=== PATIENT | female | born 1960 | race Caucasian/White ===

== ENCOUNTER → 2019-03-18 | Outpatient (CLI) | payer OTHER ==
--- NOTE | 2019-03-18 15:18 | Diagnostic Imaging Report ---
Exam: Right foot 3 views History: Osteoarthritis Comparison: None. Findings: No acute, displaced fracture or dislocation. Soft tissues are unremarkable. Joint spaces are well-maintained. Impression: No acute osseous abnormality. Signed by: Dr. Yamil Leo M.D. on 03/18/2019 3:15 PM
--- NOTE | 2019-03-18 15:21 | Diagnostic Imaging Report ---
Exam: Right wrist 3 views History: Osteoarthritis right wrist Comparison: None. Findings: No acute, displaced fracture or dislocation. There is a deformity of the proximal scaphoid with increased density of the scaphoid relative to the remainder of the carpal bones. Appropriate alignment between the distal radius, lunate, and capitate is maintained on the lateral radiograph 3 radius scaphoid joint space narrowing is noted. Soft tissues are unremarkable. Impression: Deformity of the scaphoid with increased density likely reflects chronic osteonecrosis with secondary radioscaphoid degenerative osteoarthrosis. Signed by: Dr. Yamil Leo M.D. on 03/18/2019 3:18 PM
== END ==
LOC: RAD 14:30
PROVIDERS: ATTEND Internal Medicine
DX: M19.031 Primary osteoarthritis, right wrist (principal); M19.071 Primary osteoarthritis, right ankle and foot

== ENCOUNTER → 2019-04-02 | Outpatient (CLI) | payer OTHER ==
--- NOTE | 2019-04-02 14:01 | Diagnostic Imaging Report ---
MRI of the right forefoot without contrast. History: Foot pain. Fall. Pain near the fourth digit. Fracture. Swelling. Technique: Multiplanar multisequence MRI of the foot without contrast Comparison: Radiograph 03/18/2019 Findings: There is no acute fracture, subluxation or avascular necrosis. Mild scattered degenerative changes are seen. No osseous erosion. No ligamentous or tendon tear. The visualized neurovascular bundles are intact. The visualized muscles are normal in size, signal intensity and morphology. Impression: No acute fracture, subluxation or avascular necrosis. Specifically no fourth toe fracture is seen. There are scattered degenerative changes. No osseous erosion. Mild edema between the distal third and fourth metatarsals could be due to intermetatarsal bursitis. Signed by: Dr. Josué Rosa M.D. on 04/02/2019 1:58 PM
== END ==
LOC: MRI 10:03
PROVIDERS: ATTEND Internal Medicine
DX: Z12.31 Encounter for screening mammogram for malignant neoplasm of breast (principal); M79.671 Pain in right foot; I73.9 Peripheral vascular disease, unspecified
CPT/HCPCS: 77067

== ENCOUNTER 2019-04-23 23:02 | Emergency (ER) | payer OTHER ==
--- OUTSIDE RECORDS SUMMARY | 2019-04-23 23:05 | XMS REPORT | Clinical Summary ---
Author Author [facility] Address Unknown Phone Unavailable Care Team Providers Care Hemodialysis Charge Nurse Name Role Phone James Jackson PCP Allergies No Known Allergies Medications Not on file Active Problems Not on file Social History Date Tobacco Use Types Packs/Day Years Used Never Assessed Sex Assigned at Date Recorded Not on file Industry Job Start Date Occupation Not on file Not on file Not on file Travel End Travel History Travel Start No recent travel history available. Last Filed Vital Signs Not on file Plan of Treatment Not on file Results Not on fileafter 04/22/2018 Insurance Payer Benefit Subscriber ID Type Phone Address Plan / Group [employer] xxxxxxxxxx [employer] E [employer]CHANGE MULTIPLAN [employer] M[employer] xxxxxxxxxx PPO PPO
--- OUTSIDE RECORDS SUMMARY | 2019-04-23 23:05 | XMS REPORT | Clinical Summary ---
Author Author [facility] Address Unknown Phone Unavailable Care Team Providers Care Sap Project Manager Name Role Phone Karina Link MD PCP Allergies No Known Allergies Medications End Date Status Medication Sig Dispensed Refills Start Date Active lubiprostone (AMITIZA) 8 Take 8 mcg by 0 MCG capsule mouth daily with breakfast. Active aspirin (ECOTRIN) 81 MG Take 81 mg by 0 enteric coated tablet mouth daily. Active atorvastatin (LIPITOR) 80 Take 80 mg by 0 MG tablet mouth daily. Active isosorbide mononitrate Take 60 mg by 0 (IMDUR) 60 MG 24 hr mouth daily. tablet Active lisinopril Take 20 mg by 0 (PRINIVIL,ZESTRIL) 20 mg mouth daily. tablet Active nitroglycerin (NITROSTAT) Place 0.4 mg 0 0.4 MG SL tablet under the tongue every 5 (five) minutes as needed for chest pain. Active dicyclomine (BENTYL) 20 Take 20 mg by 0 mg tablet mouth daily. 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 angina pectoris 03/30/2017 Hyperlipidemia LDL goal <70 03/30/2017 Peripheral vascular disease with claudication 03/30/2017 Asymptomatic menopausal state 03/30/2017 Irritable bowel syndrome with both constipation and diarrhea 03/30/2017 Personal history of nicotine dependence 03/30/2017 Abnormal result of cardiovascular function study 03/30/2017 Chest pain 03/30/2017 Family History Medical History Relation Name Comments Heart failure Father Heart failure Mother Relation Name Status Comments Father Mother Social History Date Tobacco Use Types Packs/Day Years Used Current Every Day Smoker Alcohol Use Drinks/Week oz/Week Comments No Sex Assigned at Date Recorded Not on file Industry Job Start Date Occupation Not on file Not on file Not on file Travel End Travel History Travel Start No recent travel history available. Last Filed Vital Signs Not on file Plan of Treatment Not on file Results Not on fileafter 04/22/2018 Advance Directives Patient has advance care planning documents on file. For more information, rosa sheldon contact: Hemant Mcclelland [address] [place] [address]
--- OUTSIDE RECORDS SUMMARY | 2019-04-23 23:06 | XMS REPORT ---
Author Author [facility] Address Unknown Phone Unavailable Care Team Providers Care Value Advisor Name Role Phone Kristy PATEL Unavailable Unavailable Payers Payer Name Policy Type Policy Number Effective Date Expiration Date Problems This patient has no known problems. Allergies, Adverse Reactions, Alerts Allergy Name Allergy Type Status Severity Reaction(s) Onset Date Inactive Date Treating Clinician Comments No Known Allergies DA Active U 2019-02-23 00:00:00 bupropion DA Active NE 2019-02-19 00:00:00 bupropion DA Active NE 2014-03-03 00:00:00 Medications This patient has no known medications. Results Test Description Test Time Test Comments Text Results Atomic Results Result Comments MRI FOOT RIGHT WO 2019-04-02 13:55:00 [facility] [address], [place] [address] Patient Name: LETY STRONG MR #: [id number] : 1960 Age/Sex: 58/F Req #: [id number] Adm Physician: Ordered by: CHICO PATEL MD Report #: [id number] Location: [facility] Room/Bed: Procedure: [id number] MRI/MRI FOOT RIGHT WO Exam Date: Exam Time: REPORT STATUS: Signed MRI of the right forefoot without contrast. History: Foot magnus n. Fall. Pain near the fourth digit. Fracture. Swelling. Technique: Multiplanar multisequence MRI of the foot without contrast Comparison: Radiograph 03/18/2019 Findings: There is no acute fracture, subluxation or avascular necrosis. Mild scattered degenerative changes are seen. No osseous erosion. No ligamentous or tendon tear. The visualized neurovascular bundles are intact. The visualized muscles are normal in size, signal intensity and morphology. Impression: No acute fracture, subluxation or avascular necrosis. Specifically no fourth toe fracture is seen. There are scattered degenerative changes. No osseous erosion. Mild edema between the distal third and fourth metatarsals could be due to intermetatarsal bursitis. Signed by: Dr. Chapito Rosa M.D. on 04/02/2019 1:58 PM Dictated By: CHAPITO ROSA MD, MD 4848 Transcribed By: MAGALIS on 04/02/19 0056 COPY TO: CHICO HUI MD [facility] DIGITAL SCR BILAT 2019-04-02 11:02:00 [place] [address] Patient Name: LETY STRONG MR #: [id number] : 1960 Age/Sex: 58/F Req #: [id number] Adm Physician: Ordered by: CHICO PATEL MD Report #: [id number] Location: MRI Room/Bed: Procedure: [id number] MG/MAMMOGRAPHY DIGITAL SCR BILAT Exam Date: 04/02/19 Exam Time: 1006 REPORT STATUS: Signed #[id number] - [id number] #BILATERAL DIGITAL SCREENING MAMMOGRAM WITH CAD: 04/02/2019 CLINICAL: Routine screening. Comparison is made to exam dated: 07/06/2016 mammogram - [facility]. The tissue of both breasts is predominantly fatty. Current study was also evaluated with a Computer Aided Detection (CAD) system. There are benign vascular calcifications in both breasts. No significant masses, calcifications, or other findings are seen in either breast. There has been no significant interval change. IMPRESSION: BENIGN There is no mammographic evidence of malignancy. A 1 year screening mammogram is recommended. The patient will be notified by letter of the results. JEANNIE HERR M.D., mc/nakia:04/10/2019 11:25:52 Rn Integrity: Gypsy ALEMAN(Yeny)(Kristy), [facility] letter sent: Normal Exam Mammogram BI-RADS: 2 Benign Dictated By: CARMEN HERR MD 1 125 Transcribed By: NAKIA on 04/10/19 9735 COPY TO: CHICO PATEL MD [facility] 2019-03-21 13:46:00 FAX: Meek Weeks III, MD [phone] [place]: St: REG FAX: Mike Dutta MD [phone] Name: LETY STRONG [facility] : 1960 Age/S: 58/F [address] Unit #: [id number] Loc: [place] [address] Phys: Meek Hurtado III, MD Acct: [id number] Dis Date: Status: REG [facility] PHONE #: [phone] Exam Date: 03/21/2019 1338 FAX #: [phone] Reason: LEFT LOWER LEG PAIN EXAMS: CPT CODE: [id number] [facility] LE ART [facility] [place] [address] Left lower extremity arterial Doppler ultrasound History: LEFT LOWER LEG PAIN Comparison: None at this time Location: R16 Left lower extremity arterial Doppler ultrasound, including grayscale real-time B-mode imaging with Duplex color flow and spectral analysis, was performed. There is a monophasic waveform pattern in the trifurcation arteries of the left lower extremity, consistent with small vessel disease. The remainder of the visualized arteries demonstrate a normal arterial waveform pattern. IMPRESSION: There is a monophasic waveform pattern in the trifurcation mariaa kenyon of the left lower extremity, consistent with small vessel disease. Otherwise unremarkable exam. at 1346 Reported and signed by: Jd Carroll MD CC: Meek Hurtado MD; Mike Lainez MD Technologist: SUSAN House Trnscrd Date/Time/By: 03/21/2019 (4896) : By: ChuckyPMT PAGE 1 Signed Report FAX: Meek Weeks III, MD [phone] [place]: St: REG FAX: Mike Dutta MD [phone] Name: LETY STRONG : 1960 Age/S: 58/F [address] Unit #: [id number] Loc: [place] [address] Phys: Meek Hurtado III, MD Acct: [id number] Dis Date: Status: REG [facility] PHONE #: [phone] Exam Date: 03/21/2019 1338 FAX #: [phone] Reason: LEFT LOWER LEG PAIN EXAMS: CPT CODE: [id number] [place] [address] <Continued> Orig Print D/T: S: 03/21/2019 (0625) PAGE 2 Signed Report ACT-ISTAT 2019-03-21 08:53:00 ACT-ISTAT (test code=ACTI) 362 SEC 74-125 COMPREHENSIVE METABOLIC [id number] 13:34:00* Test Item Value Reference Range Comments SODIUM (test code=NA) 141 mmol/L 137-145 POTASSIUM (test code=K) 3.8 mmol/L 3.4-5.0 CHLORIDE (test code=CL) 105 mmol/L 98-107 CARBON DIOXIDE (test code=CO2) 29 mmol/L 22-30 GLUCOSE (test code=GLU) 88 mg/dL 74-106 BLOOD UREA NITROGEN (test code=BUN) 8 mg/dL 7-17 GLOMERULAR FILTRATION RATE (test code=GFR) 110 >60 The estimated glomerular filtration rate is computed usingpatient race, age (>18), sex, and serum creatinine. If anyof the needed data elements are missing the Laboratory cannot compute an estimation of the glomerular filtration rate. CREATININE (test code=CREAT) 0.6 mg/dL 0.5-1.0 TOTAL PROTEIN (test code=PROT) 7.1 g/dL 6.3-8.2 ALBUMIN (test code=ALB) 4.1 g/dL 3.5-5.0 CALCIUM (test code=CA) 9.7 mg/dL 8.4-10.2 BILIRUBIN TOTAL (test code=BILT) 0.2 mg/dL 0.2-1.3 BILIRUBIN CONJUGATED (test code=BILCON) 0 mg/dL 0-0.3 ~~~~~~~~~~~~~~~~~~~~~~~~~~~~~~~~~~~~~~~~~~~~~~~~~~~~~~~~~~~~CONJUGATED BILIRUBIN IS THE REPLACEMENT ASSAY FOR DIRECTBILIRUBIN.~~~~~~~~~~~~~~~~~~~~~~~~~~~~~~~~~~~~~~~~~~~~~~~~~~~~~~~~~~~~ BILIRUBIN UNCONJUGATED (test code=BILUNC) 0 mg/dL 0-1.1 SGOT/AST (test code=AST) 31 U/L 15-46 SGPT/ALT (test code=ALT) < 13 U/L 13-69 ALKALINE PHOSPHATASE (test code=ALKP) 78 U/L 38-126 PROTHROMBIN [id number] 13:24:00* Test Item Value Reference Range Comments PROTHROMBIN TIME PATIENT (test code=PTP) 10.9 SECONDS 9.2-12.1 INTERNATIONAL NORMAL RATIO (test code=INR) 1.0 The INR is to be used only for monitoring ORAL ANTICOAGULANTTHERAPY. Indication INR Value1. Prophylaxis/treatment of: Venous Thrombosis, Pulmonary Embolism 2.0 - 3.02. Prevention of systemic embolism from: Tissue heart valves 2.0 - 3.0 Acute myocardial infarction (to present systemic embolism)* 2.0 - 3.0 Valvular heart disease 2.0 - 3.0 Atrial fibrillation 2.0 - 3.03. Mechanical prosthetic valves (high risk) 2.5 - 3.5 * If oral anticoagulant therapy is elected to preventrecurrent myocardial infarction, an INR of 2.5-3.5 isrecommended, consistent with Food and Drug Administrationrecommendations. IS PATIENT ON ANTICOAGULANTS ? YESLIST ANTICOAGULANT/ANTI PLT MEDICATION: Cl opidogrel (Anti-PLT)THROMBOPLASTIN TIME [id number] 13:24:00* Test Item Value Reference Range Comments THROMBOPLASTIN TIME PARTIAL (test code=PTT) 27.2 SECONDS 23.4-37.0 Therapeutic Range for Heparin EFFECTIVE 05/22/13 Heparin IU/mL aPTT Seconds0.3 64.30.7 88.8 IS PATIENT ON ANTICOAGULANTS ? YESLIST ANTICOAGULANT/ANTI PLT MEDICATION: Cl opidogrel (Anti-PLT)UA RFLX MICR CULT IF [id number] 13:24:00* Test Item Value Reference Range Comments UA COLOR (test code=COLU) Straw Yellow UA APPEARANCE (test code=APPU) Clear Clear UA GLUCOSE DIPSTICK (test code=DGLUU) Negative Negative UA BILIRUBIN DIPSTICK (test code=BILU) Negative Negative UA KETONE DIPSTICK (test code=KETU) Negative mg/dL Negative UA SPECIFIC GRAVITY (test code=SGU) 1.006 <1.030 UA BLOOD DIPSTICK (test code=GAY) Negative Negative UA PH DIPSTICK (test code=ROB) 7.0 5.0-8.0 UA PROTEIN DIPSTICK (test code=PROU) NEGATIVE mg/dL Negative UA UROBILINOGEN DIPSTICK (test code=URO) Negative mg/dL Negative UA NITRITE DIPSTICK (test code=BAKARI) Negative Negative UA LEUKOCYTE ESTERASE DIPSTICK (test code=LEUU) NEGATIVE Negative UA WBC (test code=WBCUR) 0-3 /HPF <4-5 <10 WBC/HPF=PYURIA ABSENT URINE CULTURE NOT INDICATED UA RBC (test code=RBCU) 0-3 /HPF <4-5 UA BACTERIA (test code=BACU) NONE SEEN /HPF None-Rare UA SQUAMOUS CELLS (test code=SQU) 0-5 (RARE) /HPF 0-5 (RARE) UA MUCUS (test code=MUCU) Rare /LPF <Rare less than 18 yrs old, neutropenic, or urological surgery? NOPrimary Indication f or Culture: OtherOther Indication: PREOPCBC W/AUTO [id number] 13:18:00* Test Item Value Reference Range Comments WHITE BLOOD CELL (test code=WBC) 9.4 x10 3/uL 5.0-12.0 RED BLOOD CELL (test code=RBC) 4.47 x10 6/uL 4.20-5.40 HEMOGLOBIN (test code=HGB) 12.7 g/dL 12.0-16.0 HEMATOCRIT (test code=HCT) 40.8 % 36.0-46.0 MEAN CELL VOLUME (test code=MCV) 91 fL 81-99 MEAN CELL HGB (test code=MCH) 28.4 pg 27-31 MEAN CELL HGB CONCENTRATION (test code=MCHC) 31.1 g/dL 33-37 RED CELL DISTRIBUTION WIDTH (test code=RDW) 13.8 % 11.5-15.5 PLATELET COUNT (test code=PLT) 304 x10 3/uL 130-400 MEAN PLATELET VOLUME (test code=MPV) 9.5 fL 9.4-16.4 NEUTROPHIL % (test code=NT%) 60.1 % 43-65 IMMATURE GRANULOCYTE % (test code=IG%) 0.5 % 0.0-2.0 LYMPHOCYTE % (test code=LY%) 26.6 % 20.5-45.5 MONOCYTE % (test code=MO%) 7.8 % 5.5-11.7 EOSINOPHIL % (test code=EO%) 4.6 % 0.9-2.9 BASOPHIL % (test code=BA%) 0.4 % 0.2-1.0 NUCLEATED RBC % (test code=NRBC%) 0.0 % 0-1.0 NEUTROPHIL # (test code=NT#) 5.62 x10 3/uL 2.2-4.8 IMMATURE GRANULOCYTE # (test code=IG#) 0.05 x10 3/uL 0-0.03 LYMPHOCYTE # (test code=LY#) 2.49 x10 3/uL 1.3-2.9 MONOCYTE # (test code=MO#) 0.73 x10 3/uL 0.3-0.8 EOSINOPHIL # (test code=EO#) 0.43 x10 3/uL 0.0-0.2 BASOPHIL # (test code=BA#) 0.04 x10 3/uL 0.0-0.1 - XR CHEST 2 [id number] 13:11:00 FAX: Meek Weeks III, MD [phone] [place]: St: PRE FAX: Mike Dutta MD [phone] Name: LETY STRONG [facility] [place] : 1960 Age/S: 58/F [address] Unit #: [id number] Loc: [place] [address] Phys: Meek Hurtado III, MD Acct: [id number] Dis Date: Status: PRE [facility] PHONE #: [phone] Exam Date: 03/20/2019 1256 FAX #: [phone] Reason: PREOP EXAMS: CPT CODE: [id number] XR CHEST 2 V 75225 C3 TIME OF STUDY: 03/20/2019 12:31 PM REASON FOR EXAM: PREOP COMPARISON: None FINDINGS: PA and lateral upright views of the chest were obtained. Lungs: Normal lung volume. No mass, or consolidation. Normal pulmonary vascularity. Pleura: No pleural effusion or pneumothorax. Heart and Mediastinum: Normal cardiomediastinal silhouette and calcific atherosclerosis. Bones: Normal regional skeletal structures. IMPRESSION: 1. No acute cardiopulmonary process. at 1311 Reported and signed by: Fer Couch MD CC: Meek Hurtado MD; Mike Lainez MD Technologist: DINO PIZANO Trnohrd Date/Time/By: 03/20/2019 (9427) : By: [email or web address] PAGE 1 Signed Report FAX: Meek Weeks III, MD [phone] [place]: St: PRE FAX: Mike Dutta MD [phone] -------- Name: LETY STRONG [facility] : 1959 Age/S: 58/F [address] Unit #: [id number] Loc: [place] [address] Phys: Meek Hurtado III, MD Acct: [id number] Dis Date: Status: PRE [facility] PHONE #: [phone] Exam Date: 03/20/2019 1255 FAX #: [phone] Reason: PREOP EXAMS: CPT CODE: [id number] XR CHEST 2 V 52334 <Continued> Orig Print D/T: S: 03/20/2019 (2573) PAGE 2 Signed Report WRIST COMPLETE [id number] 15:15:00 [facility] [address] [place] [address] Patient Name: LETY STRONG MR #: [id number] : 1960 Age/Sex: 58/F Req #: [id number] Adm Physician: Ordered by: CHICO PATEL MD Report #: [id number] Location: [facility] Room/Bed: Procedure: [id number] DX/ WRIST COMPLETE RIGHT Exam Date: Exam Time: REPORT STATUS: Signed Exam: Right w rist 3 views History: Osteoarthritis right wrist Comparison: None. Findings: No acute, displaced fracture or dislocation. There is a deform ity of the proximal scaphoid with increased density of the scaphoid relative t o the remainder of the carpal bones. Appropriate alignment between the distal radius, lunate, and capitate is maintained on the lateral radiograph 3 radius scaphoid joint space narrowing is noted. Soft tissues are unremarkable. 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 Signed by: Dr. Yusuf Lucia M.D. on 03/18/2019 3:18 PM Di ctated By: YUSUF LUCIA MD 5762 COPY TO: CHICO PATEL MD FOOT RIGHT [id number] 15:13:00 [place] [address] Patient Name: LETY STRONG MR #: [id number] : 1960 Age/Sex: 58/F Req #: [id number] Adm Physician: Ordered by: CHICO PATEL MD Report #: [id number] Location: [facility] Room/Bed: Procedure: [id number] DX/ FOOT RIGHT COMPLETE Exam Date: Exam Time: REPORT STATUS: Signed Exam: Right fo ot 3 views History: Osteoarthritis Comparison: None. Findings: N o acute, displaced fracture or dislocation. Soft tissues are unremarkable. Jenifer nt spaces are well-maintained. Impression: No acute osseous abnormality. Signed by: Dr. Yusuf Lucia M.D. on 03/18/2019 3:15 PM Dictated By: YUSUF LUCIA MD 2756 Transcribed By: MAGALIS on 03/18/19 3023 COPY TO: CHICO PATEL MD - CTA ABD AORTA IF LWEX [id number] 09:44:00 FAX: Meek Weeks III, MD [phone] [place]: St: ADM FAX: Mike Dutta MD [phone] Name: LETY STRONG : 1960 Age/S: 58/F [address] Unit: [id number] Loc: [address] [place] [address] Phys: Meek Hurtado III, MD Acct: [id number] Dis Date: Status: ADM IN PHONE #: [phone] Exam Date: 03/06/2019829 FAX #: [phone] Reason: aortoiliac disease; pad EXAMS: CPT CODE: [id number] [place] [address] EXAM: - CTA ABD AORTA IF LWEX RO HISTORY: Aortoiliac disease Location code:C3 COMPARISON: None available time of interpretation. TECHNIQUE: Axial CT images were obtained from the abdomen through the feet after intravenous contrast util izing CTA protocol. Coronal and sagittal MIP with 3-D volume rendered jose eduardo ges are provided. Automated exposure reduction (Auto mA/Smart mA) was util ized in compliance with ACR Image [employer]isely with DLP of 516.33 mGy-cm. COMPARISON: None FINDINGS: Statements: None. Thoracic: Included images of the lower chest demonstrate no abnorma lities. Hepatobiliary: The liver is normal without focal lesion. T he gallbladder is normal. No biliary dilation. Pancreas: Nor mal. Spleen: Normal. Adrenals: Normal. Genitourinary: The kidneys are normal. No evidence of hydronephrosis. Evaluation of the bladder is limited, but no obvious bladder abnormality i s present. Gastrointestinal: Surgical anastomosis about the sigmoi d colon is seen. No bowel obstruction is seen. The appendix is normal. Vascular: There are 2 right renal arteries with 50% stenosis at the origin of the more superior right renal artery. Single left renal a rtery is present and widely patent. Mild narrowing at the origin of the s uperior mesenteric artery of less than 20% is seen. The celiac PAGE 1 Signed Report (CONTINUED) FAX: Meek Terry III, MD [phone] [place]: St: ADM FAX: Mike Dutta MD [phone] Name: LETY STRONG [facility] [place] : 1960 Age/S: 58/F [address] Unit: [id number] Loc: [address] [place] [address] Phys: Meek Hurtado III, MD Acct: [id number] Dis Date: Status: ADM IN PHONE #: [phone] Exam Date: 03/06/2019829 FAX #: [phone] Reason: aortoiliac disease; pad EXAMS: CPT CODE: [id number] [place] [address] < Continued> artery and inferior mesenteric artery are widely patent. Extensive atherosclerotic plaque both calcified and noncalcified is seen throughout the abdominal aorta. There appears to be central luminal calcified plaque in the distal abdominal aorta just proximal to the aortic bifurcation. Shelflike plaque creating 50% short segment stenosis of the right common iliac artery just beyond its origin is seen. The external iliac and common femoral arteries are widely patent bilaterally. There is areas of plaque approaching 50% stenosis of the distal right superficial femoral artery. There is diffuse narrowing of the distal left superficial femoral artery with stenosis approaching 70% with three-vessel runoff to the left ankle. Lymphatics: No enlarged lymph nodes by CT size criteria. Bones/Soft Tissues: No acute osseous findings. Diastases of the lower abdominal wall containing fat and a small portion of small bowel is present without obstruction. Peritoneum/Other: No extraluminal air. No extraluminal fluid. Coronal and sagittal MIP with 3-D volume rendered images confirm these findings. IMPRESSION: 1. There is extensive atherosclerotic plaque both calcified and noncalcified throughout the abdominal aorta with areas of central luminal calcified plaque in the distal abdominal aorta which may represent chronic calcified dissection or could create flow limiting stenosis. Traditional angiogram may be warranted. 2. There are 2 right renal arteries with 50% narrowing of the origin of the more superior right renal artery at its origin. 3. Short segment 50% stenosis of the right common iliac artery just beyond its origin. 4. Scattered areas of narrowing of the distal superficial femoral arteries approaching 50% on the right and diffuse narrowing of the distal left superficial femoral artery approaching 70%. 5. Diastases lower abdominal wall as detailed above. PAGE 2 Signed Report (CONTINUED) FAX: Meek Weeks III, MD [phone] [place]: St: ADM FAX: Mike Dutta MD [phone] Name: [place] : 1960 Age/S: 58/F [address] Unit: [id number] c: [address] [place] [address] Phys: Meek Hurtado III, MD Acct: [id number] Dis Date: Status: ADM IN PHONE #: [phone] Exam Date: 03/06/2019829 FAX #: [phone] [place] son: aortoiliac disease; pad EXAMS: CPT CODE: [id number] [place] [address] <Continued> at 0944 Reported and signed by: Romain Estrada MD CC: Meek Hurtado MD; Mike Lainez MD Technologist: TORI LOPEZ Trnscrd Dt/Tm: 03/06/2019 (4929) [email or web address] Orig Print D/T: S: 03/06/2019 (0947 PAGE 3 Signed Report BASIC METABOLIC [id number] 04:32:00* Test Item Value Reference Range Comments SODIUM (test code=NA) 138 mmol/L 137-145 POTASSIUM (test code=K) 4.3 mmol/L 3.4-5.0 CHLORIDE (test code=CL) 106 mmol/L 98-107 CARBON DIOXIDE (test code=CO2) 25 mmol/L 22-30 GLUCOSE (test code=GLU) 105 mg/dL 74-106 BLOOD UREA NITROGEN (test code=BUN) 14 mg/dL 7-17 GLOMERULAR FILTRATION RATE (test code=GFR) >=60 max estimate >60 The estimated glomerular filtration rate is computed usingpatient race, age (>18), sex, and serum creatinine. If anyof the needed data elements are missing the Laboratory cannot compute an estimation of the glomerular filtration rate. CREATININE (test code=CREAT) 0.6 mg/dL 0.5-1.0 CALCIUM (test code=CA) 9.5 mg/dL 8.4-10.2 PROTHROMBIN [id number] 04:22:00* Test Item Value Reference Range Comments PROTHROMBIN TIME PATIENT (test code=PTP) 12.0 SECONDS 9.2-12.1 INTERNATIONAL NORMAL RATIO (test code=INR) 1.1 The INR is to be used only for monitoring ORAL ANTICOAGULANTTHERAPY. Indication INR Value1. Prophylaxis/treatment of: Venous Thrombosis, Pulmonary Embolism 2.0 - 3.02. Prevention of systemic embolism from: Tissue heart valves 2.0 - 3.0 Acute myocardial infarction (to present systemic embolism)* 2.0 - 3.0 Valvular heart disease 2.0 - 3.0 Atrial fibrillation 2.0 - 3.03. Mechanical prosthetic valves (high risk) 2.5 - 3.5 * If oral anticoagulant therapy is elected to preventrecurrent myocardial infarction, an INR of 2.5-3.5 isrecommended, consistent with Food and Drug Administrationrecommendations. THROMBOPLASTIN TIME [id number] 04:22:00* Test Item Value Reference Range Comments THROMBOPLASTIN TIME PARTIAL (test code=PTT) 29.2 SECONDS 23.4-37.0 Therapeutic Range for Heparin EFFECTIVE 05/22/13 Heparin IU/mL aPTT Seconds0.3 64.30.7 88.8 CBC W/AUTO [id number] 04:15:00* Test Item Value Reference Range Comments WHITE BLOOD CELL (test code=WBC) 8.4 x10 3/uL 5.0-12.0 RED BLOOD CELL (test code=RBC) 3.96 x10 6/uL 4.20-5.40 HEMOGLOBIN (test code=HGB) 11.4 g/dL 12.0-16.0 HEMATOCRIT (test code=HCT) 35.8 % 36.0-46.0 MEAN CELL VOLUME (test code=MCV) 90 fL 81-99 MEAN CELL HGB (test code=MCH) 28.8 pg 27-31 MEAN CELL HGB CONCENTRATION (test code=MCHC) 31.8 g/dL 33-37 RED CELL DISTRIBUTION WIDTH (test code=RDW) 13.1 % 11.5-15.5 PLATELET COUNT (test code=PLT) 229 x10 3/uL 130-400 MEAN PLATELET VOLUME (test code=MPV) 10.0 fL 9.4-16.4 NEUTROPHIL % (test code=NT%) 71.8 % 43-65 IMMATURE GRANULOCYTE % (test code=IG%) 0.5 % 0.0-2.0 LYMPHOCYTE % (test code=LY%) 15.4 % 20.5-45.5 MONOCYTE % (test code=MO%) 8.4 % 5.5-11.7 EOSINOPHIL % (test code=EO%) 3.1 % 0.9-2.9 BASOPHIL % (test code=BA%) 0.8 % 0.2-1.0 NUCLEATED RBC % (test code=NRBC%) 0.0 % 0-1.0 NEUTROPHIL # (test code=NT#) 6.01 x10 3/uL 2.2-4.8 IMMATURE GRANULOCYTE # (test code=IG#) 0.04 x10 3/uL 0-0.03 LYMPHOCYTE # (test code=LY#) 1.29 x10 3/uL 1.3-2.9 MONOCYTE # (test code=MO#) 0.70 x10 3/uL 0.3-0.8 EOSINOPHIL # (test code=EO#) 0.26 x10 3/uL 0.0-0.2 BASOPHIL # (test code=BA#) 0.07 x10 3/uL 0.0-0.1 [id number] 11:51:00* Test Item Value Reference Range Comments ACT-ISTAT (test code=ACTI) 180 SEC 74-125 [id number] 10:56:00* Test Item Value Reference Range Comments ACT-ISTAT (test code=ACTI) 208 SEC 74-125 [id number] 08:56:00* Test Item Value Reference Range Comments ACT-ISTAT (test code=ACTI) 335 SEC 74-125 PROTHROMBIN [id number] 07:20:00* Test Item Value Reference Range Comments PROTHROMBIN TIME PATIENT (test code=PTP) 10.7 SECONDS 9.2-12.1 INTERNATIONAL NORMAL RATIO (test code=INR) 1.0 The INR is to be used only for monitoring ORAL ANTICOAGULANTTHERAPY. Indication INR Value1. Prophylaxis/treatment of: Venous Thrombosis, Pulmonary Embolism 2.0 - 3.02. Prevention of systemic embolism from: Tissue heart valves 2.0 - 3.0 Acute myocardial infarction (to present systemic embolism)* 2.0 - 3.0 Valvular heart disease 2.0 - 3.0 Atrial fibrillation 2.0 - 3.03. Mechanical prosthetic valves (high risk) 2.5 - 3.5 * If oral anticoagulant therapy is elected to preventrecurrent myocardial infarction, an INR of 2.5-3.5 isrecommended, consistent with Food and Drug Administrationrecommendations. THROMBOPLASTIN TIME [id number] 07:20:00* Test Item Value Reference Range Comments THROMBOPLASTIN TIME PARTIAL (test code=PTT) 29.4 SECONDS 23.4-37.0 Therapeutic Range for Heparin EFFECTIVE 05/22/13 Heparin IU/mL aPTT Seconds0.3 64.30.7 88.8 CBC W/AUTO [id number] 07:11:00* Test Item Value Reference Range Comments WHITE BLOOD CELL (test code=WBC) 6.3 x10 3/uL 5.0-12.0 RED BLOOD CELL (test code=RBC) 4.27 x10 6/uL 4.20-5.40 HEMOGLOBIN (test code=HGB) 12.4 g/dL 12.0-16.0 HEMATOCRIT (test code=HCT) 38.4 % 36.0-46.0 MEAN CELL VOLUME (test code=MCV) 90 fL 81-99 MEAN CELL HGB (test code=MCH) 29.0 pg 27-31 MEAN CELL HGB CONCENTRATION (test code=MCHC) 32.3 g/dL 33-37 RED CELL DISTRIBUTION WIDTH (test code=RDW) 13.2 % 11.5-15.5 PLATELET COUNT (test code=PLT) 249 x10 3/uL 130-400 MEAN PLATELET VOLUME (test code=MPV) 10.2 fL 9.4-16.4 NEUTROPHIL % (test code=NT%) 55.4 % 43-65 IMMATURE GRANULOCYTE % (test code=IG%) 0.5 % 0.0-2.0 LYMPHOCYTE % (test code=LY%) 27.4 % 20.5-45.5 MONOCYTE % (test code=MO%) 10.7 % 5.5-11.7 EOSINOPHIL % (test code=EO%) 4.9 % 0.9-2.9 BASOPHIL % (test code=BA%) 1.1 % 0.2-1.0 NUCLEATED RBC % (test code=NRBC%) 0.0 % 0-1.0 NEUTROPHIL # (test code=NT#) 3.51 x10 3/uL 2.2-4.8 IMMATURE GRANULOCYTE # (test code=IG#) 0.03 x10 3/uL 0-0.03 LYMPHOCYTE # (test code=LY#) 1.74 x10 3/uL 1.3-2.9 MONOCYTE # (test code=MO#) 0.68 x10 3/uL 0.3-0.8 EOSINOPHIL # (test code=EO#) 0.31 x10 3/uL 0.0-0.2 BASOPHIL # (test code=BA#) 0.07 x10 3/uL 0.0-0.1 BASIC METABOLIC [id number] 05:43:00* Test Item Value Reference Range Comments SODIUM (test code=NA) 141 mmol/L 137-145 POTASSIUM (test code=K) 4.1 mmol/L 3.4-5.0 CHLORIDE (test code=CL) 106 mmol/L 98-107 CARBON DIOXIDE (test code=CO2) 25 mmol/L 22-30 GLUCOSE (test code=GLU) 95 mg/dL 74-106 BLOOD UREA NITROGEN (test code=BUN) 15 mg/dL 7-17 GLOMERULAR FILTRATION RATE (test code=GFR) >=60 max estimate >60 The estimated glomerular filtration rate is computed usingpatient race, age (>18), sex, and serum creatinine. If anyof the needed data elements are missing the Laboratory cannot compute an estimation of the glomerular filtration rate. CREATININE (test code=CREAT) 0.6 mg/dL 0.5-1.0 CALCIUM (test code=CA) 9.5 mg/dL 8.4-10.2 CBC W/AUTO [id number] 05:31:00* Test Item Value Reference Range Comments WHITE BLOOD CELL (test code=WBC) 7.2 x10 3/uL 5.0-12.0 RED BLOOD CELL (test code=RBC) 4.52 x10 6/uL 4.20-5.40 HEMOGLOBIN (test code=HGB) 12.7 g/dL 12.0-16.0 HEMATOCRIT (test code=HCT) 42.0 % 36.0-46.0 MEAN CELL VOLUME (test code=MCV) 93 fL 81-99 MEAN CELL HGB (test code=MCH) 28.1 pg 27-31 MEAN CELL HGB CONCENTRATION (test code=MCHC) 30.2 g/dL 33-37 RED CELL DISTRIBUTION WIDTH (test code=RDW) 13.1 % 11.5-15.5 PLATELET COUNT (test code=PLT) 229 x10 3/uL 130-400 MEAN PLATELET VOLUME (test code=MPV) 10.1 fL 9.4-16.4 NEUTROPHIL % (test code=NT%) 47.7 % 43-65 IMMATURE GRANULOCYTE % (test code=IG%) 0.3 % 0.0-2.0 LYMPHOCYTE % (test code=LY%) 34.6 % 20.5-45.5 MONOCYTE % (test code=MO%) 10.7 % 5.5-11.7 EOSINOPHIL % (test code=EO%) 5.6 % 0.9-2.9 BASOPHIL % (test code=BA%) 1.1 % 0.2-1.0 NUCLEATED RBC % (test code=NRBC%) 0.0 % 0-1.0 NEUTROPHIL # (test code=NT#) 3.43 x10 3/uL 2.2-4.8 IMMATURE GRANULOCYTE # (test code=IG#) 0.02 x10 3/uL 0-0.03 LYMPHOCYTE # (test code=LY#) 2.49 x10 3/uL 1.3-2.9 MONOCYTE # (test code=MO#) 0.77 x10 3/uL 0.3-0.8 EOSINOPHIL # (test code=EO#) 0.40 x10 3/uL 0.0-0.2 BASOPHIL # (test code=BA#) 0.08 x10 3/uL 0.0-0.1 BRITTANY [id number] 12:22:00 RUN DATE: 02/28/19 [place] - Lab PAGE 1 RUN TIME: 1222 Specimen Inqui ry RUN USER: INTERFACE PATIENT: LETY STRONG ACCT #: Melanie [id number] LOC: [id number] U #: [id number] AGE/SX: 58/F ROOM: [place] [id number] RE02/23/19REG DR: Mike Lainez MD : 64 BED: A DIS: STATUS: ADM IN TLOC: SPEC #: [id number] RECD: 02/27/19 STATUS: SOUDiego REQ #: [id number] ELVIS: 02/26/19 [facility] DR: Elio Troy MD ENTERED: 02/27/19 SP TYPE: ARTERY,IVELISSE OTHR DR: Malachi Torres MD,Mike Mercedes MD, MD, Jon-Cecil MDORDERED: PATHGM3, DECAL, # OF BLOCKS, # OF SLIDES TISSUES: A. ARTERY PLAQUE, NOS - LEFT CAROTID PLAQUE CLINICAL HISTORY LEFT CAROTID STENOSIS FINAL CAIN ROSCOPIC DIAGNOSIS LEFT CAROTID ARTERY, ENDARTERECTOMY: CALCIFIED ATH EROSCLEROTIC PLAQUE cpt [id number], [id number] GROSS DESCRIPTION In [facility] labeled with the patient's name, medical record number and "left carotid plaque" is a 3.0 cm in length x 1.1 cm in maximum diameter yellow-bocanegra cylindri glenn, previously incised portion of fibrous tissue. Sectioning reveals calcific ation. [employer] Supervisor sections are submitted in A1 for decalcification. SSA/DB/jv Signed SIGNATURE ON FILE Bud Cabello MD 02/28/19 1222 END OF REPORT BASIC METABOLIC [id number] 07:43:00* Test Item Value Reference Range Comments SODIUM (test code=NA) 138 mmol/L 137-145 POTASSIUM (test code=K) 4.3 mmol/L 3.4-5.0 CHLORIDE (test code=CL) 105 mmol/L 98-107 CARBON DIOXIDE (test code=CO2) 22 mmol/L 22-30 GLUCOSE (test code=GLU) 78 mg/dL 74-106 BLOOD UREA NITROGEN (test code=BUN) 18 mg/dL 7-17 GLOMERULAR FILTRATION RATE (test code=GFR) >=60 max estimate >60 The estimated glomerular filtration rate is computed usingpatient race, age (>18), sex, and serum creatinine. If anyof the needed data elements are missing the Laboratory cannot compute an estimation of the glomerular filtration rate. CREATININE (test code=CREAT) 0.7 mg/dL 0.5-1.0 CALCIUM (test code=CA) 9.1 mg/dL 8.4-10.2 CBC W/AUTO [id number] 07:29:00* Test Item Value Reference Range Comments WHITE BLOOD CELL (test code=WBC) 7.3 x10 3/uL 5.0-12.0 RED BLOOD CELL (test code=RBC) 4.46 x10 6/uL 4.20-5.40 HEMOGLOBIN (test code=HGB) 12.6 g/dL 12.0-16.0 HEMATOCRIT (test code=HCT) 40.8 % 36.0-46.0 MEAN CELL VOLUME (test code=MCV) 92 fL 81-99 MEAN CELL HGB (test code=MCH) 28.3 pg 27-31 MEAN CELL HGB CONCENTRATION (test code=MCHC) 30.9 g/dL 33-37 RED CELL DISTRIBUTION WIDTH (test code=RDW) 13.1 % 11.5-15.5 PLATELET COUNT (test code=PLT) 223 x10 3/uL 130-400 MEAN PLATELET VOLUME (test code=MPV) 10.3 fL 9.4-16.4 NEUTROPHIL % (test code=NT%) 52.3 % 43-65 IMMATURE GRANULOCYTE % (test code=IG%) 0.4 % 0.0-2.0 LYMPHOCYTE % (test code=LY%) 30.9 % 20.5-45.5 MONOCYTE % (test code=MO%) 10.9 % 5.5-11.7 EOSINOPHIL % (test code=EO%) 4.7 % 0.9-2.9 BASOPHIL % (test code=BA%) 0.8 % 0.2-1.0 NUCLEATED RBC % (test code=NRBC%) 0.0 % 0-1.0 NEUTROPHIL # (test code=NT#) 3.82 x10 3/uL 2.2-4.8 IMMATURE GRANULOCYTE # (test code=IG#) 0.03 x10 3/uL 0-0.03 LYMPHOCYTE # (test code=LY#) 2.26 x10 3/uL 1.3-2.9 MONOCYTE # (test code=MO#) 0.80 x10 3/uL 0.3-0.8 EOSINOPHIL # (test code=EO#) 0.34 x10 3/uL 0.0-0.2 BASOPHIL # (test code=BA#) 0.06 x10 3/uL 0.0-0.1 [id number] 06:53:00* Test Item Value Reference Range Comments GLUBED (test code=GLUBED) 151 MG/DL 74-106 [id number] 21:02:00* Test Item Value Reference Range Comments GLUBED (test code=GLUBED) 93 MG/DL 74-106 PROTHROMBIN [id number] 03:29:00* Test Item Value Reference Range Comments PROTHROMBIN TIME PATIENT (test code=PTP) 12.4 SECONDS 9.2-12.1 INTERNATIONAL NORMAL RATIO (test code=INR) 1.1 The INR is to be used only for monitoring ORAL ANTICOAGULANTTHERAPY. Indication INR Value1. Prophylaxis/treatment of: Venous Thrombosis, Pulmonary Embolism 2.0 - 3.02. Prevention of systemic embolism from: Tissue heart valves 2.0 - 3.0 Acute myocardial infarction (to present systemic embolism)* 2.0 - 3.0 Valvular heart disease 2.0 - 3.0 Atrial fibrillation 2.0 - 3.03. Mechanical prosthetic valves (high risk) 2.5 - 3.5 * If oral anticoagulant therapy is elected to preventrecurrent myocardial infarction, an INR of 2.5-3.5 isrecommended, consistent with Food and Drug Administrationrecommendations. THROMBOPLASTIN TIME [id number] 03:29:00* Test Item Value Reference Range Comments THROMBOPLASTIN TIME PARTIAL (test code=PTT) 27.5 SECONDS 23.4-37.0 Therapeutic Range for Heparin EFFECTIVE 05/22/13 Heparin IU/mL aPTT Seconds0.3 64.30.7 88.8 BASIC METABOLIC [id number] 03:22:00* Test Item Value Reference Range Comments SODIUM (test code=NA) 137 mmol/L 137-145 POTASSIUM (test code=K) 4.1 mmol/L 3.4-5.0 CHLORIDE (test code=CL) 103 mmol/L 98-107 CARBON DIOXIDE (test code=CO2) 28 mmol/L 22-30 GLUCOSE (test code=GLU) 113 mg/dL 74-106 BLOOD UREA NITROGEN (test code=BUN) 11 mg/dL 17 GLOMERULAR FILTRATION RATE (test code=GFR) >=60 max estimate >60 The estimated glomerular filtration rate is computed usingpatient race, age (>18), sex, and serum creatinine. If anyof the needed data elements are missing the Laboratory cannot compute an estimation of the glomerular filtration rate. CREATININE (test code=CREAT) 0.6 mg/dL 0.5-1.0 CALCIUM (test code=CA) 9.3 mg/dL 8.4-10.2 CBC W/AUTO [id number] 03:22:00* Test Item Value Reference Range Comments WHITE BLOOD CELL (test code=WBC) 9.1 x10 3/uL 5.0-12.0 RED BLOOD CELL (test code=RBC) 4.49 x10 6/uL 4.20-5.40 HEMOGLOBIN (test code=HGB) 12.9 g/dL 12.0-16.0 HEMATOCRIT (test code=HCT) 40.3 % 36.0-46.0 MEAN CELL VOLUME (test code=MCV) 90 fL 81-99 MEAN CELL HGB (test code=MCH) 28.7 pg 27-31 MEAN CELL HGB CONCENTRATION (test code=MCHC) 32.0 g/dL 33-37 RED CELL DISTRIBUTION WIDTH (test code=RDW) 13.2 % 11.5-15.5 PLATELET COUNT (test code=PLT) 217 x10 3/uL 130-400 MEAN PLATELET VOLUME (test code=MPV) 10.2 fL 9.4-16.4 NEUTROPHIL % (test code=NT%) 64.0 % 43-65 IMMATURE GRANULOCYTE % (test code=IG%) 0.2 % 0.0-2.0 LYMPHOCYTE % (test code=LY%) 24.5 % 20.5-45.5 MONOCYTE % (test code=MO%) 9.2 % 5.5-11.7 EOSINOPHIL % (test code=EO%) 1.5 % 0.9-2.9 BASOPHIL % (test code=BA%) 0.6 % 0.2-1.0 NUCLEATED RBC % (test code=NRBC%) 0.0 % 0-1.0 NEUTROPHIL # (test code=NT#) 5.81 x10 3/uL 2.2-4.8 IMMATURE GRANULOCYTE # (test code=IG#) 0.02 x10 3/uL 0-0.03 LYMPHOCYTE # (test code=LY#) 2.23 x10 3/uL 1.3-2.9 MONOCYTE # (test code=MO#) 0.84 x10 3/uL 0.3-0.8 EOSINOPHIL # (test code=EO#) 0.14 x10 3/uL 0.0-0.2 BASOPHIL # (test code=BA#) 0.05 x10 3/uL 0.0-0.1 PROTHROMBIN [id number] 18:26:00* Test Item Value Reference Range Comments PROTHROMBIN TIME PATIENT (test code=PTP) 13.1 SECONDS 9.2-12.1 INTERNATIONAL NORMAL RATIO (test code=INR) 1.2 The INR is to be used only for monitoring ORAL ANTICOAGULANTTHERAPY. Indication INR Value1. Prophylaxis/treatment of: Venous Thrombosis, Pulmonary Embolism 2.0 - 3.02. Prevention of systemic embolism from: Tissue heart valves 2.0 - 3.0 Acute myocardial infarction (to present systemic embolism)* 2.0 - 3.0 Valvular heart disease 2.0 - 3.0 Atrial fibrillation 2.0 - 3.03. Mechanical prosthetic valves (high risk) 2.5 - 3.5 * If oral anticoagulant therapy is elected to preventrecurrent myocardial infarction, an INR of 2.5-3.5 isrecommended, consistent with Food and Drug Administrationrecommendations. THROMBOPLASTIN TIME [id number] 18:26:00* Test Item Value Reference Range Comments THROMBOPLASTIN TIME PARTIAL (test code=PTT) 21.8 SECONDS 23.4-37.0 Therapeutic Range for Heparin EFFECTIVE 05/22/13 Heparin IU/mL aPTT Seconds0.3 64.30.7 88.8 BASIC METABOLIC [id number] 18:25:00* Test Item Value Reference Range Comments SODIUM (test code=NA) 141 mmol/L 137-145 POTASSIUM (test code=K) 4.1 mmol/L 3.4-5.0 CHLORIDE (test code=CL) 106 mmol/L 98-107 CARBON DIOXIDE (test code=CO2) 28 mmol/L 22-30 GLUCOSE (test code=GLU) 97 mg/dL 74-106 BLOOD UREA NITROGEN (test code=BUN) 12 mg/dL 7-17 GLOMERULAR FILTRATION RATE (test code=GFR) >=60 max estimate >60 The estimated glomerular filtration rate is computed usingpatient race, age (>18), sex, and serum creatinine. If anyof the needed data elements are missing the Laboratory cannot compute an estimation of the glomerular filtration rate. CREATININE (test code=CREAT) 0.7 mg/dL 0.5-1.0 CALCIUM (test code=CA) 9.6 mg/dL 8.4-10.2 [id number] 18:12:00* Test Item Value Reference Range Comments GLUBED (test code=GLUBED) 89 MG/DL 74-106 CBC W/AUTO [id number] 18:12:00* Test Item Value Reference Range Comments WHITE BLOOD CELL (test code=WBC) 8.2 x10 3/uL 5.0-12.0 RED BLOOD CELL (test code=RBC) 5.06 x10 6/uL 4.20-5.40 HEMOGLOBIN (test code=HGB) 14.7 g/dL 12.0-16.0 HEMATOCRIT (test code=HCT) 46.1 % 36.0-46.0 MEAN CELL VOLUME (test code=MCV) 91 fL 81-99 MEAN CELL HGB (test code=MCH) 29.1 pg 27-31 MEAN CELL HGB CONCENTRATION (test code=MCHC) 31.9 g/dL 33-37 RED CELL DISTRIBUTION WIDTH (test code=RDW) 13.2 % 11.5-15.5 PLATELET COUNT (test code=PLT) 213 x10 3/uL 130-400 MEAN PLATELET VOLUME (test code=MPV) 10.3 fL 9.4-16.4 NEUTROPHIL % (test code=NT%) 52.4 % 43-65 IMMATURE GRANULOCYTE % (test code=IG%) 0.6 % 0.0-2.0 LYMPHOCYTE % (test code=LY%) 34.3 % 20.5-45.5 MONOCYTE % (test code=MO%) 7.4 % 5.5-11.7 EOSINOPHIL % (test code=EO%) 4.6 % 0.9-2.9 BASOPHIL % (test code=BA%) 0.7 % 0.2-1.0 NUCLEATED RBC % (test code=NRBC%) 0.0 % 0-1.0 NEUTROPHIL # (test code=NT#) 4.28 x10 3/uL 2.2-4.8 IMMATURE GRANULOCYTE # (test code=IG#) 0.05 x10 3/uL 0-0.03 LYMPHOCYTE # (test code=LY#) 2.81 x10 3/uL 1.3-2.9 MONOCYTE # (test code=MO#) 0.61 x10 3/uL 0.3-0.8 EOSINOPHIL # (test code=EO#) 0.38 x10 3/uL 0.0-0.2 BASOPHIL # (test code=BA#) 0.06 x10 3/uL 0.0-0.1 BASIC METABOLIC [id number] 05:19:00* Test Item Value Reference Range Comments SODIUM (test code=NA) 139 mmol/L 137-145 POTASSIUM (test code=K) 3.8 mmol/L 3.4-5.0 CHLORIDE (test code=CL) 105 mmol/L 98-107 CARBON DIOXIDE (test code=CO2) 25 mmol/L 22-30 GLUCOSE (test code=GLU) 102 mg/dL 74-106 BLOOD UREA NITROGEN (test code=BUN) 16 mg/dL 7-17 GLOMERULAR FILTRATION RATE (test code=GFR) >=60 max estimate >60 The estimated glomerular filtration rate is computed usingpatient race, age (>18), sex, and serum creatinine. If anyof the needed data elements are missing the Laboratory cannot compute an estimation of the glomerular filtration rate. CREATININE (test code=CREAT) 0.7 mg/dL 0.5-1.0 CALCIUM (test code=CA) 9.9 mg/dL 8.4-10.2 CBC W/AUTO [id number] 04:51:00* Test Item Value Reference Range Comments WHITE BLOOD CELL (test code=WBC) 8.1 x10 3/uL 5.0-12.0 RED BLOOD CELL (test code=RBC) 4.76 x10 6/uL 4.20-5.40 HEMOGLOBIN (test code=HGB) 13.5 g/dL 12.0-16.0 HEMATOCRIT (test code=HCT) 42.6 % 36.0-46.0 MEAN CELL VOLUME (test code=MCV) 90 fL 81-99 MEAN CELL HGB (test code=MCH) 28.4 pg 27-31 MEAN CELL HGB CONCENTRATION (test code=MCHC) 31.7 g/dL 33-37 RED CELL DISTRIBUTION WIDTH (test code=RDW) 13.3 % 11.5-15.5 PLATELET COUNT (test code=PLT) 230 x10 3/uL 130-400 MEAN PLATELET VOLUME (test code=MPV) 10.3 fL 9.4-16.4 NEUTROPHIL % (test code=NT%) 56.0 % 43-65 IMMATURE GRANULOCYTE % (test code=IG%) 0.4 % 0.0-2.0 LYMPHOCYTE % (test code=LY%) 27.1 % 20.5-45.5 MONOCYTE % (test code=MO%) 10.3 % 5.5-11.7 EOSINOPHIL % (test code=EO%) 5.3 % 0.9-2.9 BASOPHIL % (test code=BA%) 0.9 % 0.2-1.0 NUCLEATED RBC % (test code=NRBC%) 0.0 % 0-1.0 NEUTROPHIL # (test code=NT#) 4.55 x10 3/uL 2.2-4.8 IMMATURE GRANULOCYTE # (test code=IG#) 0.03 x10 3/uL 0-0.03 LYMPHOCYTE # (test code=LY#) 2.20 x10 3/uL 1.3-2.9 MONOCYTE # (test code=MO#) 0.84 x10 3/uL 0.3-0.8 EOSINOPHIL # (test code=EO#) 0.43 x10 3/uL 0.0-0.2 BASOPHIL # (test code=BA#) 0.07 x10 3/uL 0.0-0.1 BASIC METABOLIC [id number] 05:41:00* Test Item Value Reference Range Comments SODIUM (test code=NA) 142 mmol/L 137-145 POTASSIUM (test code=K) 3.9 mmol/L 3.4-5.0 CHLORIDE (test code=CL) 107 mmol/L 98-107 CARBON DIOXIDE (test code=CO2) 25 mmol/L 22-30 GLUCOSE (test code=GLU) 96 mg/dL 74-106 BLOOD UREA NITROGEN (test code=BUN) 17 mg/dL 7-17 GLOMERULAR FILTRATION RATE (test code=GFR) >=60 max estimate >60 The estimated glomerular filtration rate is computed usingpatient race, age (>18), sex, and serum creatinine. If anyof the needed data elements are missing the Laboratory cannot compute an estimation of the glomerular filtration rate. CREATININE (test code=CREAT) 0.7 mg/dL 0.5-1.0 CALCIUM (test code=CA) 9.7 mg/dL 8.4-10.2 CBC W/AUTO [id number] 05:14:00* Test Item Value Reference Range Comments WHITE BLOOD CELL (test code=WBC) 7.2 x10 3/uL 5.0-12.0 RED BLOOD CELL (test code=RBC) 4.71 x10 6/uL 4.20-5.40 HEMOGLOBIN (test code=HGB) 13.3 g/dL 12.0-16.0 HEMATOCRIT (test code=HCT) 42.6 % 36.0-46.0 MEAN CELL VOLUME (test code=MCV) 90 fL 81-99 MEAN CELL HGB (test code=MCH) 28.2 pg 27-31 MEAN CELL HGB CONCENTRATION (test code=MCHC) 31.2 g/dL 33-37 RED CELL DISTRIBUTION WIDTH (test code=RDW) 12.8 % 11.5-15.5 PLATELET COUNT (test code=PLT) 215 x10 3/uL 130-400 MEAN PLATELET VOLUME (test code=MPV) 10.0 fL 9.4-16.4 NEUTROPHIL % (test code=NT%) 54.6 % 43-65 IMMATURE GRANULOCYTE % (test code=IG%) 0.1 % 0.0-2.0 LYMPHOCYTE % (test code=LY%) 29.8 % 20.5-45.5 MONOCYTE % (test code=MO%) 10.5 % 5.5-11.7 EOSINOPHIL % (test code=EO%) 4.2 % 0.9-2.9 BASOPHIL % (test code=BA%) 0.8 % 0.2-1.0 NUCLEATED RBC % (test code=NRBC%) 0.0 % 0-1.0 NEUTROPHIL # (test code=NT#) 3.94 x10 3/uL 2.2-4.8 IMMATURE GRANULOCYTE # (test code=IG#) 0.01 x10 3/uL 0-0.03 LYMPHOCYTE # (test code=LY#) 2.15 x10 3/uL 1.3-2.9 MONOCYTE # (test code=MO#) 0.76 x10 3/uL 0.3-0.8 EOSINOPHIL # (test code=EO#) 0.30 x10 3/uL 0.0-0.2 BASOPHIL # (test code=BA#) 0.06 x10 3/uL 0.0-0.1 COMPREHENSIVE METABOLIC [id number] 04:36:00* Test Item Value Reference Range Comments SODIUM (test code=NA) 142 mmol/L 137-145 POTASSIUM (test code=K) 4.2 mmol/L 3.4-5.0 CHLORIDE (test code=CL) 107 mmol/L 98-107 CARBON DIOXIDE (test code=CO2) 29 mmol/L 22-30 GLUCOSE (test code=GLU) 93 mg/dL 74-106 BLOOD UREA NITROGEN (test code=BUN) 12 mg/dL 7-17 GLOMERULAR FILTRATION RATE (test code=GFR) >=60 max estimate >60 The estimated glomerular filtration rate is computed usingpatient race, age (>18), sex, and serum creatinine. If anyof the needed data elements are missing the Laboratory cannot compute an estimation of the glomerular filtration rate. CREATININE (test code=CREAT) 0.7 mg/dL 0.5-1.0 TOTAL PROTEIN (test code=PROT) 6.2 g/dL 6.3-8.2 ALBUMIN (test code=ALB) 3.5 g/dL 3.5-5.0 CALCIUM (test code=CA) 9.7 mg/dL 8.4-10.2 BILIRUBIN TOTAL (test code=BILT) < 0.1 mg/dL 0.2-1.3 BILIRUBIN CONJUGATED (test code=BILCON) 0 mg/dL 0-0.3 ~~~~~~~~~~~~~~~~~~~~~~~~~~~~~~~~~~~~~~~~~~~~~~~~~~~~~~~~~~~~CONJUGATED BILIRUBIN IS THE REPLACEMENT ASSAY FOR DIRECTBILIRUBIN.~~~~~~~~~~~~~~~~~~~~~~~~~~~~~~~~~~~~~~~~~~~~~~~~~~~~~~~~~~~~ BILIRUBIN UNCONJUGATED (test code=BILUNC) 0 mg/dL 0-1.1 SGOT/AST (test code=AST) 35 U/L 15-46 SGPT/ALT (test code=ALT) 25 U/L 13-69 ALKALINE PHOSPHATASE (test code=ALKP) 67 U/L 38-126 COMPREHENSIVE METABOLIC [id number] 04:20:00* Test Item Value Reference Range Comments SODIUM (test code=NA) 142 mmol/L 137-145 POTASSIUM (test code=K) 4.2 mmol/L 3.4-5.0 CHLORIDE (test code=CL) 107 mmol/L 98-107 CARBON DIOXIDE (test code=CO2) 29 mmol/L 22-30 GLUCOSE (test code=GLU) 93 mg/dL 74-106 BLOOD UREA NITROGEN (test code=BUN) 12 mg/dL 7-17 GLOMERULAR FILTRATION RATE (test code=GFR) >=60 max estimate >60 The estimated glomerular filtration rate is computed usingpatient race, age (>18), sex, and serum creatinine. If anyof the needed data elements are missing the Laboratory cannot compute an estimation of the glomerular filtration rate. CREATININE (test code=CREAT) 0.7 mg/dL 0.5-1.0 TOTAL PROTEIN (test code=PROT) 6.2 g/dL 6.3-8.2 ALBUMIN (test code=ALB) 3.5 g/dL 3.5-5.0 CALCIUM (test code=CA) 9.7 mg/dL 8.4-10.2 BILIRUBIN TOTAL (test code=BILT) mg/dL 0.2-1.3 BILIRUBIN CONJUGATED (test code=BILCON) mg/dL 0-0.3 BILIRUBIN UNCONJUGATED (test code=BILUNC) mg/dL 0-1.1 SGOT/AST (test code=AST) 35 U/L 15-46 SGPT/ALT (test code=ALT) 25 U/L 13-69 ALKALINE PHOSPHATASE (test code=ALKP) 67 U/L 38-126 CBC W/AUTO [id number] 04:08:00* Test Item Value Reference Range Comments WHITE BLOOD CELL (test code=WBC) 6.2 x10 3/uL 5.0-12.0 RED BLOOD CELL (test code=RBC) 4.52 x10 6/uL 4.20-5.40 HEMOGLOBIN (test code=HGB) 12.8 g/dL 12.0-16.0 HEMATOCRIT (test code=HCT) 41.1 % 36.0-46.0 MEAN CELL VOLUME (test code=MCV) 91 fL 81-99 MEAN CELL HGB (test code=MCH) 28.3 pg 27-31 MEAN CELL HGB CONCENTRATION (test code=MCHC) 31.1 g/dL 33-37 RED CELL DISTRIBUTION WIDTH (test code=RDW) 13.0 % 11.5-15.5 PLATELET COUNT (test code=PLT) 207 x10 3/uL 130-400 MEAN PLATELET VOLUME (test code=MPV) 9.9 fL 9.4-16.4 NEUTROPHIL % (test code=NT%) 48.3 % 43-65 IMMATURE GRANULOCYTE % (test code=IG%) 0.3 % 0.0-2.0 LYMPHOCYTE % (test code=LY%) 35.3 % 20.5-45.5 MONOCYTE % (test code=MO%) 9.9 % 5.5-11.7 EOSINOPHIL % (test code=EO%) 5.2 % 0.9-2.9 BASOPHIL % (test code=BA%) 1.0 % 0.2-1.0 NUCLEATED RBC % (test code=NRBC%) 0.0 % 0-1.0 NEUTROPHIL # (test code=NT#) 2.97 x10 3/uL 2.2-4.8 IMMATURE GRANULOCYTE # (test code=IG#) 0.02 x10 3/uL 0-0.03 LYMPHOCYTE # (test code=LY#) 2.17 x10 3/uL 1.3-2.9 MONOCYTE # (test code=MO#) 0.61 x10 3/uL 0.3-0.8 EOSINOPHIL # (test code=EO#) 0.32 x10 3/uL 0.0-0.2 BASOPHIL # (test code=BA#) 0.06 x10 3/uL 0.0-0.1 BASIC METABOLIC [id number] 06:21:00* Test Item Value Reference Range Comments SODIUM (test code=NA) 140 mmol/L 136-145 POTASSIUM (test code=K) 4.0 mmol/L 3.5-5.1 CHLORIDE (test code=CL) 108.0 mmol/L 98-107 CARBON DIOXIDE (test code=CO2) 25.0 mmol/L 21-32 ANION GAP (test code=GAP) 11.0 10-20 GLUCOSE (test code=GLU) 95 mg/dL 74-106 BLOOD UREA NITROGEN (test code=BUN) 12 mg/dL 7-18 GLOMERULAR FILTRATION RATE (test code=GFR) > 60 mL/min >=60 Estimated GFR by using Modified MDRD formula.Chronic kidney disease is defined as either kidney damageor GFR <60 mL/min/1.73 m2 for >3 months. CREATININE (test code=CREAT) 0.70 mg/dL 0.55-1.02 Note change in reference range due to change in reagent. BUN/CREATININE RATIO (test code=BUN/CREA) 17.1 10-20 CALCIUM (test code=CA) 8.9 mg/dL 8.5-10.1 CBC W/AUTO [id number] 06:05:00* Test Item Value Reference Range Comments WHITE BLOOD CELL (test code=WBC) 5.8 K/mm3 4.5-12.5 RED BLOOD CELL (test code=RBC) 4.90 mill/mm3 3.7-5.2 HEMOGLOBIN (test code=HGB) 13.6 gram/dL 11.5-15.5 HEMATOCRIT (test code=HCT) 45.2 % 36.0-46.0 MEAN CELL VOLUME (test code=MCV) 92.2 fL 80-98 MEAN CELL HGB (test code=MCH) 27.8 picogram 27.0-33.0 MEAN CELL HGB CONCETRATION (test code=MCHC) 30.1 gram/dL 33.0-36.0 RED CELL DISTRIBUTION WIDTH (test code=RDW) 13.2 % 11.6-16.2 RED CELL DISTRIBUTION WIDTH SD (test code=RDW-SD) 44.6 fL 37.0-51.0 PLATELET COUNT (test code=PLT) 234 K/mm3 150-450 MEAN PLATELET VOLUME (test code=MPV) 9.9 fL 6.7-11.0 NEUTROPHIL % (test code=NT%) 52.2 % 39.0-69.0 IMMATURE GRANULOCYTE % (test code=IG%) 0.2 % 0.0-5.0 LYMPHOCYTE % (test code=LY%) 31.9 % 25.0-55.0 MONOCYTE % (test code=MO%) 10.3 % 0.0-10.0 EOSINOPHIL % (test code=EO%) 4.5 % 0.0-5.0 BASOPHIL % (test code=BA%) 0.9 % 0.0-1.0 NUCLEATED RBC % (test code=NRBC%) 0.0 % 0-0 NEUTROPHIL # (test code=NT#) 3.03 K/mm3 1.8-7.7 IMMATURE GRANULOCYTE # (test code=IG#) 0.01 x10 3/uL 0-0.03 LYMPHOCYTE # (test code=LY#) 1.85 K/mm3 1.0-5.0 MONOCYTE # (test code=MO#) 0.60 K/mm3 0-0.8 EOSINOPHIL # (test code=EO#) 0.26 K/mm3 0.0-0.5 BASOPHIL # (test code=BA#) 0.05 K/mm3 0.0-0.2 NUCLEATED RBC # (test code=NRBC#) 0.00 K/mm3 0.0-0.1 MANUAL DIFF REQUIRED (test code=MDIFF) NO CBC W/AUTO [id number] 05:56:00* Test Item Value Reference Range Comments WHITE BLOOD CELL (test code=WBC) K/mm3 4.5-12.5 RED BLOOD CELL (test code=RBC) mill/mm3 3.7-5.2 HEMOGLOBIN (test code=HGB) 13.6 gram/dL 11.5-15.5 HEMATOCRIT (test code=HCT) 45.2 % 36.0-46.0 MEAN CELL VOLUME (test code=MCV) fL 80-98 MEAN CELL HGB (test code=MCH) picogram 27.0-33.0 MEAN CELL HGB CONCETRATION (test code=MCHC) gram/dL 33.0-36.0 RED CELL DISTRIBUTION WIDTH (test code=RDW) % 11.6-16.2 RED CELL DISTRIBUTION WIDTH SD (test code=RDW-SD) fL 37.0-51.0 PLATELET COUNT (test code=PLT) K/mm3 150-450 MEAN PLATELET VOLUME (test code=MPV) fL 6.7-11.0 NEUTROPHIL % (test code=NT%) % 39.0-69.0 IMMATURE GRANULOCYTE % (test code=IG%) % 0.0-5.0 LYMPHOCYTE % (test code=LY%) % 25.0-55.0 MONOCYTE % (test code=MO%) % 0.0-10.0 EOSINOPHIL % (test code=EO%) % 0.0-5.0 BASOPHIL % (test code=BA%) % 0.0-1.0 NEUTROPHIL # (test code=NT#) K/mm3 1.8-7.7 LYMPHOCYTE # (test code=LY#) K/mm3 1.0-5.0 MONOCYTE # (test code=MO#) K/mm3 0-0.8 EOSINOPHIL # (test code=EO#) K/mm3 0.0-0.5 BASOPHIL # (test code=BA#) K/mm3 0.0-0.2 - MRI BRAIN W/O [id number] 12:25:00 FAX: Ingrid Aguilera MD [phone] [place]: St: ADM Name: Melanie APONTELETY DESHPANDE [facility] : [birth year] 64 Age/S: 58/F [address] [facility] Unit #: [id number] Loc: V.[address] [place] [address] Phys: Ingrid Velez MD Acct: [id number] Dis Date: Status: ADM IN PHONE #: [phone] Exam Date: 02/20/2019 1201 FAX #: [phone] Reason: Worsening R sided weakness EXAMS: CPT CODE: [id number] MRI BRAIN W/O CONTRAST [id number] HISTORY: Worsening right-sided wea kness. COMPARISON: Head CT from previous day. MRI br ain without contrast: No acute territorial vascular or acute lacun ar infarction. No MR evidence for hemorrhage. No extra-axial fluid collect ions. Mild periventricular white matter ischemic change. Gliosis within th e cortex of the left temporal and parietal lobes as well. This sparing of the white matter. Correlate with postcontrast exam for further evalu ation. No herniation, hydrocephalus or midline shift. Fourth ventricle is midline Expected flow-voids visible within the major intracranial vasculature. VII and VIII nerve complex are symmetrical and normal. Mastoi d air cells are clear. Air-fluid level within the left maxillary sinus and partial opacification of the right maxillary sinus mucosal thickening of the frontal sinus and partial opacification of the ethmoid air cells. Air-fluid level as well within the left sphenoid sinus. Intraorbital con tents are unremarkable. Midbrain, stefanie and medulla are without mas s effect. No cerebellar ectopia. Pituitary gland, optic chiasm and corpus callosum are normal. Clivus with normal marrow signal symmetrical hippocam pi without mesial temporal sclerosis. No parenchymal mass on this noncontr ast study. IMPRESSION: No acute territorial va scular or acute lacunar infarction. Gliosis in the cortical gr ay matter of the left temporal and parietal lobes. This could represent cerebritis or chronic cortical ischemia. Correlate with postcontrast sosa dy for definitive evaluation. Correlate with CSF evaluation. Acute pansinusitis. at 6191 Reported and signed by: Christiano harris M.D. PAGE 1 Signed Report (CONTINUED) FAX: Ingrid Aguilera MD [phone] [place]: St: ADM --- Name: LETY STRONG [facility] : 1960 Age/S: 58/F [address] [facility] Unit #: [id number] Loc: V.20[address] [place] [address] Phys: Ingrid Armendariz MD Acct: [id number] Dis Date: Status: ADM IN PHONE #: [phone] Exam Date: 02/20/2019 1201 FAX #: [phone] Reason: Worsening R sided weakness EXAMS: CPT CODE: [id number] MRI BRAIN W/O CONTRAST 11244 <Continued> CC: Ingrid Velez MD Technologist: Ryan Barragan(R)(MR) Trnohrd Date/Time/By: 02/20/2019 (8208) : By: [email or web address] Orig Print D/T: S: 02/20/2019 (9912) PAGE 2 Signed Report CBC W/MANUAL [id number] 08:29:00* Test Item Value Reference Range Comments WHITE BLOOD CELL (test code=WBC) 5.4 K/mm3 4.5-12.5 RED BLOOD CELL (test code=RBC) 4.94 mill/mm3 3.7-5.2 HEMOGLOBIN (test code=HGB) 13.4 gram/dL 11.5-15.5 HEMATOCRIT (test code=HCT) 45.9 % 36.0-46.0 MEAN CELL VOLUME (test code=MCV) 92.9 fL 80-98 MEAN CELL HGB (test code=MCH) 27.1 picogram 27.0-33.0 MEAN CELL HGB CONCETRATION (test code=MCHC) 29.2 gram/dL 33.0-36.0 RED CELL DISTRIBUTION WIDTH (test code=RDW) 13.2 % 11.6-16.2 RED CELL DISTRIBUTION WIDTH SD (test code=RDW-SD) 44.6 fL 37.0-51.0 PLATELET COUNT (test code=PLT) 238 K/mm3 150-450 MEAN PLATELET VOLUME (test code=MPV) 10.1 fL 6.7-11.0 IMMATURE GRANULOCYTE % (test code=IG%) 0.4 % 0.0-5.0 NUCLEATED RBC % (test code=NRBC%) 0.0 % 0-0 NEUTROPHIL # (test code=NT#) 3.15 K/mm3 1.8-7.7 IMMATURE GRANULOCYTE # (test code=IG#) 0.02 x10 3/uL 0-0.03 LYMPHOCYTE # (test code=LY#) 1.52 K/mm3 1.0-5.0 MONOCYTE # (test code=MO#) 0.48 K/mm3 0-0.8 EOSINOPHIL # (test code=EO#) 0.17 K/mm3 0.0-0.5 BASOPHIL # (test code=BA#) 0.05 K/mm3 0.0-0.2 NUCLEATED RBC # (test code=NRBC#) 0.00 K/mm3 0.0-0.1 MANUAL DIFF REQUIRED (test code=MDIFF) YES STAIN ACCEPTABILITY (test code=STN ACCEPTABLE) STAIN ACCEPTABLE TOTAL CELLS COUNTED (test code=TCC) 114 #CELLS SEGMENTED NEUTROPHILS (test code=SEG) 63.2 % 39-69 BAND NEUTROPHIL (test code=BAND) 0 % 0-10 LYMPHOCYTE (test code=LYMPH) 28.9 % 25-55 REACTIVE LYMPH (test code=RELYMPH) 0 % MONOCYTE (test code=MON) 7.0 % 0-10 EOSINOPHIL (test code=EOS) 0.9 % 0.0-5.0 BASOPHIL (test code=BASO) 0 % 0-1.0 METAMYELOCYTE (test code=META) 0 % 0-0 MYELOCYTE (test code=MYELO) 0 % 0.0-0.0 PROMYELOCYTE (test code=PROM) 0 % 0-0 MORPHOLOGY COMMENT (test code=MOC) NORMAL PLATELET ESTIMATE (test code=PLTEST) ADEQUATE PLATELET MORPHOLOGY (test code=PLTMORPH) CLUMPING PRESENT IMMATURE FORMS (test code=IMMAT) 0 % COMPREHENSIVE METABOLIC [id number] 08:04:00* Test Item Value Reference Range Comments SODIUM (test code=NA) 141 mmol/L 136-145 POTASSIUM (test code=K) 4.0 mmol/L 3.5-5.1 CHLORIDE (test code=CL) 108.0 mmol/L 98-107 CARBON DIOXIDE (test code=CO2) 25.0 mmol/L 21-32 ANION GAP (test code=GAP) 12.0 10-20 GLUCOSE (test code=GLU) 84 mg/dL 74-106 BLOOD UREA NITROGEN (test code=BUN) 14 mg/dL 7-18 GLOMERULAR FILTRATION RATE (test code=GFR) > 60 mL/min >=60 Estimated GFR by using Modified MDRD formula.Chronic kidney disease is defined as either kidney damageor GFR <60 mL/min/1.73 m2 for >3 months. CREATININE (test code=CREAT) 0.60 mg/dL 0.55-1.02 Note change in reference range due to change in reagent. BUN/CREATININE RATIO (test code=BUN/CREA) 23.3 10-20 TOTAL PROTEIN (test code=PROT) 6.9 gram/dL 6.4-8.2 ALBUMIN (test code=ALB) 3.4 g/dL 3.4-5.0 GLOBULIN (test code=GLOB) 3.5 gram/dL 2.7-4.2 ALBUMIN/GLOBULIN RATIO (test code=A/G) 1.0 0.75-1.50 CALCIUM (test code=CA) 9.0 mg/dL 8.5-10.1 BILIRUBIN TOTAL (test code=BILT) 0.20 mg/dL 0.0-1.0 SGOT/AST (test code=AST) 16 IUnit/L 15-37 SGPT/ALT (test code=ALT) 16 IUnit/L 12-78 ALKALINE PHOSPHATASE TOTAL (test code=ALKP) 86 IUnit/L 45-117 Note change in reference range due to change in reagent. LIPID PROFILE (CORONARY RISK)2019-02-20 08:04:00* Test Item Value Reference Range Comments TRIGLYCERIDES (test code=TRIG) 138 mg/dL 20-150 CHOLESTEROL (test code=CHOL) 163 mg/dL 0-200 CHOLESTEROL/HDL RATIO (test code=CHOLHDL) 5.0 RATIO 0-4.9 RISK ASSOCIATED WITH CHOL/HDL RATIOS: Risk Male Female1/2 AVERAGE 3.43 3.27AVERAGE 4.97 4.442X AVERAGE 9.55 7.053X AVERAGE 23.39 11.04 REFERENCE VALUE IS RELATED TO RISK LEVELS ASRECOMMENDED BY THE CHEL. HEART, LUNG, AND BLOOD INST. HDL CHOLESTEROL (test code=HDL) 31 mg/dL 40-60 LIPOPROTEIN LDL (test code=LDL) 104 mg/dL 100-129 RN PERSONNEL, CONTACT PHYSICIAN IMMEDIATELY IF THIS IS A STROKE, AMI OR CAROTID STENOSIS PATIENT WHEN THE LDL >100 (1ST OCCURENCE, THIS ADMISSION) Reference Interval: mg/dL mmol/L Optimal <100 <2.6Near/above optimal 100-129 2.6- 3.3Borderline High 130-159 3.4-4.1High 160-189 4.1-4.9Very High >=190 >=4.9=========This LDL result is a direct measurement.========= THYROID STIMULATING [id number] 08:04:00* Test Item Value Reference Range Comments THYROID STIMULATING HORMONE (test code=TSH) 0.741 uIU/mL 0.36-3.74 TSH REFERENCE RANGES: EUTHYROID: 0.35 - 4.3 mIU/mL HYPO : > 5.5 mIU/mL HYPER : < 0.35 mIU/mL COMPREHENSIVE METABOLIC [id number] 07:48:00* Test Item Value Reference Range Comments SODIUM (test code=NA) 141 mmol/L 136-145 POTASSIUM (test code=K) 4.0 mmol/L 3.5-5.1 CHLORIDE (test code=CL) 108.0 mmol/L 98-107 CARBON DIOXIDE (test code=CO2) mmol/L 21-32 ANION GAP (test code=GAP) 10-20 GLUCOSE (test code=GLU) mg/dL 74-106 BLOOD UREA NITROGEN (test code=BUN) mg/dL 7-18 GLOMERULAR FILTRATION RATE (test code=GFR) mL/min >=60 CREATININE (test code=CREAT) mg/dL 0.55-1.02 BUN/CREATININE RATIO (test code=BUN/CREA) 10-20 TOTAL PROTEIN (test code=PROT) gram/dL 6.4-8.2 ALBUMIN (test code=ALB) g/dL 3.4-5.0 GLOBULIN (test code=GLOB) gram/dL 2.7-4.2 ALBUMIN/GLOBULIN RATIO (test code=A/G) 0.75-1.50 CALCIUM (test code=CA) mg/dL 8.5-10.1 BILIRUBIN TOTAL (test code=BILT) mg/dL 0.0-1.0 SGOT/AST (test code=AST) IUnit/L 15-37 SGPT/ALT (test code=ALT) IUnit/L 12-78 ALKALINE PHOSPHATASE TOTAL (test code=ALKP) IUnit/L 45-117 LIPID PROFILE (CORONARY RISK)2019-02-20 07:48:00* Test Item Value Reference Range Comments TRIGLYCERIDES (test code=TRIG) mg/dL 20-150 CHOLESTEROL (test code=CHOL) mg/dL 0-200 CHOLESTEROL/HDL RATIO (test code=CHOLHDL) RATIO 0-4.9 HDL CHOLESTEROL (test code=HDL) mg/dL 40-60 LIPOPROTEIN LDL (test code=LDL) mg/dL 100-129 THYROID STIMULATING [id number] 07:48:00* Test Item Value Reference Range Comments THYROID STIMULATING HORMONE (test code=TSH) uIU/mL 0.36-3.74 CBC W/MANUAL [id number] 07:23:00* Test Item Value Reference Range Comments WHITE BLOOD CELL (test code=WBC) 5.4 K/mm3 4.5-12.5 RED BLOOD CELL (test code=RBC) 4.94 mill/mm3 3.7-5.2 HEMOGLOBIN (test code=HGB) 13.4 gram/dL 11.5-15.5 HEMATOCRIT (test code=HCT) 45.9 % 36.0-46.0 MEAN CELL VOLUME (test code=MCV) 92.9 fL 80-98 MEAN CELL HGB (test code=MCH) 27.1 picogram 27.0-33.0 MEAN CELL HGB CONCETRATION (test code=MCHC) 29.2 gram/dL 33.0-36.0 RED CELL DISTRIBUTION WIDTH (test code=RDW) 13.2 % 11.6-16.2 RED CELL DISTRIBUTION WIDTH SD (test code=RDW-SD) 44.6 fL 37.0-51.0 PLATELET COUNT (test code=PLT) 238 K/mm3 150-450 MEAN PLATELET VOLUME (test code=MPV) 10.1 fL 6.7-11.0 IMMATURE GRANULOCYTE % (test code=IG%) 0.4 % 0.0-5.0 NUCLEATED RBC % (test code=NRBC%) 0.0 % 0-0 NEUTROPHIL # (test code=NT#) 3.15 K/mm3 1.8-7.7 IMMATURE GRANULOCYTE # (test code=IG#) 0.02 x10 3/uL 0-0.03 LYMPHOCYTE # (test code=LY#) 1.52 K/mm3 1.0-5.0 MONOCYTE # (test code=MO#) 0.48 K/mm3 0-0.8 EOSINOPHIL # (test code=EO#) 0.17 K/mm3 0.0-0.5 BASOPHIL # (test code=BA#) 0.05 K/mm3 0.0-0.2 NUCLEATED RBC # (test code=NRBC#) 0.00 K/mm3 0.0-0.1 MANUAL DIFF REQUIRED (test code=MDIFF) YES STAIN ACCEPTABILITY (test code=STN ACCEPTABLE) TOTAL CELLS COUNTED (test code=TCC) #CELLS SEGMENTED NEUTROPHILS (test code=SEG) % 39-69 LYMPHOCYTE (test code=LYMPH) % 25-55 MONOCYTE (test code=MON) % 0-10 EOSINOPHIL (test code=EOS) % 0.0-5.0 CABOT RINGS (test code=CAB) MORPHOLOGY COMMENT (test code=MOC) PLATELET ESTIMATE (test code=PLTEST) PLATELET MORPHOLOGY (test code=PLTMORPH) CBC W/MANUAL [id number] 07:23:00* Test Item Value Reference Range Comments WHITE BLOOD CELL (test code=WBC) 5.4 K/mm3 4.5-12.5 RED BLOOD CELL (test code=RBC) 4.94 mill/mm3 3.7-5.2 HEMOGLOBIN (test code=HGB) 13.4 gram/dL 11.5-15.5 HEMATOCRIT (test code=HCT) 45.9 % 36.0-46.0 MEAN CELL VOLUME (test code=MCV) 92.9 fL 80-98 MEAN CELL HGB (test code=MCH) 27.1 picogram 27.0-33.0 MEAN CELL HGB CONCETRATION (test code=MCHC) 29.2 gram/dL 33.0-36.0 RED CELL DISTRIBUTION WIDTH (test code=RDW) 13.2 % 11.6-16.2 RED CELL DISTRIBUTION WIDTH SD (test code=RDW-SD) 44.6 fL 37.0-51.0 PLATELET COUNT (test code=PLT) 238 K/mm3 150-450 MEAN PLATELET VOLUME (test code=MPV) 10.1 fL 6.7-11.0 IMMATURE GRANULOCYTE % (test code=IG%) 0.4 % 0.0-5.0 NUCLEATED RBC % (test code=NRBC%) 0.0 % 0-0 NEUTROPHIL # (test code=NT#) 3.15 K/mm3 1.8-7.7 IMMATURE GRANULOCYTE # (test code=IG#) 0.02 x10 3/uL 0-0.03 LYMPHOCYTE # (test code=LY#) 1.52 K/mm3 1.0-5.0 MONOCYTE # (test code=MO#) 0.48 K/mm3 0-0.8 EOSINOPHIL # (test code=EO#) 0.17 K/mm3 0.0-0.5 BASOPHIL # (test code=BA#) 0.05 K/mm3 0.0-0.2 NUCLEATED RBC # (test code=NRBC#) 0.00 K/mm3 0.0-0.1 MANUAL DIFF REQUIRED (test code=MDIFF) YES STAIN ACCEPTABILITY (test code=STN ACCEPTABLE) TOTAL CELLS COUNTED (test code=TCC) #CELLS SEGMENTED NEUTROPHILS (test code=SEG) % 39-69 LYMPHOCYTE (test code=LYMPH) % 25-55 MONOCYTE (test code=MON) % 0-10 EOSINOPHIL (test code=EOS) % 0.0-5.0 CABOT RINGS (test code=CAB) MORPHOLOGY COMMENT (test code=MOC) PLATELET ESTIMATE (test code=PLTEST) PLATELET MORPHOLOGY (test code=PLTMORPH) CBC W/MANUAL [id number] 07:23:00* Test Item Value Reference Range Comments WHITE BLOOD CELL (test code=WBC) 5.4 K/mm3 4.5-12.5 RED BLOOD CELL (test code=RBC) 4.94 mill/mm3 3.7-5.2 HEMOGLOBIN (test code=HGB) 13.4 gram/dL 11.5-15.5 HEMATOCRIT (test code=HCT) 45.9 % 36.0-46.0 MEAN CELL VOLUME (test code=MCV) 92.9 fL 80-98 MEAN CELL HGB (test code=MCH) 27.1 picogram 27.0-33.0 MEAN CELL HGB CONCETRATION (test code=MCHC) 29.2 gram/dL 33.0-36.0 RED CELL DISTRIBUTION WIDTH (test code=RDW) 13.2 % 11.6-16.2 RED CELL DISTRIBUTION WIDTH SD (test code=RDW-SD) 44.6 fL 37.0-51.0 PLATELET COUNT (test code=PLT) 238 K/mm3 150-450 MEAN PLATELET VOLUME (test code=MPV) 10.1 fL 6.7-11.0 IMMATURE GRANULOCYTE % (test code=IG%) 0.4 % 0.0-5.0 NUCLEATED RBC % (test code=NRBC%) 0.0 % 0-0 NEUTROPHIL # (test code=NT#) 3.15 K/mm3 1.8-7.7 IMMATURE GRANULOCYTE # (test code=IG#) 0.02 x10 3/uL 0-0.03 LYMPHOCYTE # (test code=LY#) 1.52 K/mm3 1.0-5.0 MONOCYTE # (test code=MO#) 0.48 K/mm3 0-0.8 EOSINOPHIL # (test code=EO#) 0.17 K/mm3 0.0-0.5 BASOPHIL # (test code=BA#) 0.05 K/mm3 0.0-0.2 NUCLEATED RBC # (test code=NRBC#) 0.00 K/mm3 0.0-0.1 MANUAL DIFF REQUIRED (test code=MDIFF) YES STAIN ACCEPTABILITY (test code=STN ACCEPTABLE) TOTAL CELLS COUNTED (test code=TCC) #CELLS SEGMENTED NEUTROPHILS (test code=SEG) % 39-69 LYMPHOCYTE (test code=LYMPH) % 25-55 MONOCYTE (test code=MON) % 0-10 EOSINOPHIL (test code=EOS) % 0.0-5.0 MORPHOLOGY COMMENT (test code=MOC) PLATELET ESTIMATE (test code=PLTEST) PLATELET MORPHOLOGY (test code=PLTMORPH) CBC W/MANUAL [id number] 07:23:00* Test Item Value Reference Range Comments WHITE BLOOD CELL (test code=WBC) 5.4 K/mm3 4.5-12.5 RED BLOOD CELL (test code=RBC) 4.94 mill/mm3 3.7-5.2 HEMOGLOBIN (test code=HGB) 13.4 gram/dL 11.5-15.5 HEMATOCRIT (test code=HCT) 45.9 % 36.0-46.0 MEAN CELL VOLUME (test code=MCV) 92.9 fL 80-98 MEAN CELL HGB (test code=MCH) 27.1 picogram 27.0-33.0 MEAN CELL HGB CONCETRATION (test code=MCHC) 29.2 gram/dL 33.0-36.0 RED CELL DISTRIBUTION WIDTH (test code=RDW) 13.2 % 11.6-16.2 RED CELL DISTRIBUTION WIDTH SD (test code=RDW-SD) 44.6 fL 37.0-51.0 PLATELET COUNT (test code=PLT) 238 K/mm3 150-450 MEAN PLATELET VOLUME (test code=MPV) 10.1 fL 6.7-11.0 IMMATURE GRANULOCYTE % (test code=IG%) 0.4 % 0.0-5.0 NUCLEATED RBC % (test code=NRBC%) 0.0 % 0-0 NEUTROPHIL # (test code=NT#) 3.15 K/mm3 1.8-7.7 IMMATURE GRANULOCYTE # (test code=IG#) 0.02 x10 3/uL 0-0.03 LYMPHOCYTE # (test code=LY#) 1.52 K/mm3 1.0-5.0 MONOCYTE # (test code=MO#) 0.48 K/mm3 0-0.8 EOSINOPHIL # (test code=EO#) 0.17 K/mm3 0.0-0.5 BASOPHIL # (test code=BA#) 0.05 K/mm3 0.0-0.2 NUCLEATED RBC # (test code=NRBC#) 0.00 K/mm3 0.0-0.1 MANUAL DIFF REQUIRED (test code=MDIFF) YES STAIN ACCEPTABILITY (test code=STN ACCEPTABLE) TOTAL CELLS COUNTED (test code=TCC) #CELLS SEGMENTED NEUTROPHILS (test code=SEG) % 39-69 LYMPHOCYTE (test code=LYMPH) % 25-55 MONOCYTE (test code=MON) % 0-10 MORPHOLOGY COMMENT (test code=MOC) PLATELET ESTIMATE (test code=PLTEST) PLATELET MORPHOLOGY (test code=PLTMORPH) CBC W/MANUAL [id number] 07:23:00* Test Item Value Reference Range Comments WHITE BLOOD CELL (test code=WBC) 5.4 K/mm3 4.5-12.5 RED BLOOD CELL (test code=RBC) 4.94 mill/mm3 3.7-5.2 HEMOGLOBIN (test code=HGB) 13.4 gram/dL 11.5-15.5 HEMATOCRIT (test code=HCT) 45.9 % 36.0-46.0 MEAN CELL VOLUME (test code=MCV) 92.9 fL 80-98 MEAN CELL HGB (test code=MCH) 27.1 picogram 27.0-33.0 MEAN CELL HGB CONCETRATION (test code=MCHC) 29.2 gram/dL 33.0-36.0 RED CELL DISTRIBUTION WIDTH (test code=RDW) 13.2 % 11.6-16.2 RED CELL DISTRIBUTION WIDTH SD (test code=RDW-SD) 44.6 fL 37.0-51.0 PLATELET COUNT (test code=PLT) 238 K/mm3 150-450 MEAN PLATELET VOLUME (test code=MPV) 10.1 fL 6.7-11.0 IMMATURE GRANULOCYTE % (test code=IG%) 0.4 % 0.0-5.0 NUCLEATED RBC % (test code=NRBC%) 0.0 % 0-0 NEUTROPHIL # (test code=NT#) 3.15 K/mm3 1.8-7.7 IMMATURE GRANULOCYTE # (test code=IG#) 0.02 x10 3/uL 0-0.03 LYMPHOCYTE # (test code=LY#) 1.52 K/mm3 1.0-5.0 MONOCYTE # (test code=MO#) 0.48 K/mm3 0-0.8 EOSINOPHIL # (test code=EO#) 0.17 K/mm3 0.0-0.5 BASOPHIL # (test code=BA#) 0.05 K/mm3 0.0-0.2 NUCLEATED RBC # (test code=NRBC#) 0.00 K/mm3 0.0-0.1 MANUAL DIFF REQUIRED (test code=MDIFF) YES STAIN ACCEPTABILITY (test code=STN ACCEPTABLE) TOTAL CELLS COUNTED (test code=TCC) #CELLS SEGMENTED NEUTROPHILS (test code=SEG) % 39-69 LYMPHOCYTE (test code=LYMPH) % 25-55 MONOCYTE (test code=MON) % 0-10 EOSINOPHIL (test code=EOS) % 0.0-5.0 CABOT RINGS (test code=CAB) MORPHOLOGY COMMENT (test code=MOC) PLATELET ESTIMATE (test code=PLTEST) PLATELET MORPHOLOGY (test code=PLTMORPH) CBC W/AUTO [id number] 07:09:00* Test Item Value Reference Range Comments WHITE BLOOD CELL (test code=WBC) K/mm3 4.5-12.5 RED BLOOD CELL (test code=RBC) mill/mm3 3.7-5.2 HEMOGLOBIN (test code=HGB) 13.4 gram/dL 11.5-15.5 HEMATOCRIT (test code=HCT) 45.9 % 36.0-46.0 MEAN CELL VOLUME (test code=MCV) fL 80-98 MEAN CELL HGB (test code=MCH) picogram 27.0-33.0 MEAN CELL HGB CONCETRATION (test code=MCHC) gram/dL 33.0-36.0 RED CELL DISTRIBUTION WIDTH (test code=RDW) % 11.6-16.2 RED CELL DISTRIBUTION WIDTH SD (test code=RDW-SD) fL 37.0-51.0 PLATELET COUNT (test code=PLT) K/mm3 150-450 MEAN PLATELET VOLUME (test code=MPV) fL 6.7-11.0 NEUTROPHIL % (test code=NT%) % 39.0-69.0 IMMATURE GRANULOCYTE % (test code=IG%) % 0.0-5.0 LYMPHOCYTE % (test code=LY%) % 25.0-55.0 MONOCYTE % (test code=MO%) % 0.0-10.0 EOSINOPHIL % (test code=EO%) % 0.0-5.0 BASOPHIL % (test code=BA%) % 0.0-1.0 NEUTROPHIL # (test code=NT#) K/mm3 1.8-7.7 LYMPHOCYTE # (test code=LY#) K/mm3 1.0-5.0 MONOCYTE # (test code=MO#) K/mm3 0-0.8 EOSINOPHIL # (test code=EO#) K/mm3 0.0-0.5 BASOPHIL # (test code=BA#) K/mm3 0.0-0.2 - CTA [id number] 22:17:00 Name: LETY STRONG [facility] : 1960 Age/S: 58 / F [address] [facility] Unit #: [id number] Loc: [place] [address] Phys: Jacky Myrick MD Acct: [id number] Dis Date: Status: ADM IN PHONE #: [phone] Exam Date: 02/19/2019 3811 FAX #: [phone] Reason: Severe left ICA disease and possible occluded l EXAMS: CPT CODE: [id number] CTA HEAD 69395 REASON FOR EXAM: Severe left ICA disease and possible occluded left MCA EXAM ORDER DATE: 02/19/2019 4:43 PM Ordering M.Glenn: Jacky Myrick MD PROCEDURE: - CTA HEAD COMPARISON: FINDINGS: Axial images of the head were obtained with IV contrast. Dose reduction techniques were applied. Reconstructed 3-D angiogram of the cerebral vessels as well as intraluminal vessel analysis were also provided for interpretation Moderate calcification of the ICAs at the carotid siphon. Otherwise the anterior, middle, and posterior cerebral arteries are unremarkable. IMPRESSION: Unremarkable cerebral angiogram at 2217 Reported and signed by: Daniel Hughes M.D. CC: Ingrid Velez MD; Jacky Myrick MD Technologist:Yadira Lord RT(R); [facility] [place] CTDI: DLP: Trnscb Date/Time: 02/19/2019 (2216) [email or web address] Orig Print D/T: S: 02/19/2019 (2219) CTDI: DLP: PAGE 1 Signed Report - CTA [id number] 22:04:00 Name: LETY STRONG [facility] : 1960 Age/S: 58 / F [address] [facility] Unit #: [id number] Loc: [place] [address] Phys: Jacky Myrick MD Acct: [id number] Dis Date: Status: ADM IN PHONE #: [phone] Exam Date: 02/19/2019 1758 FAX #: [phone] Reason: Severe left ICA disease and possible occluded l EXAMS: CPT CODE: [id number] CTA NECK 13465 REASON FOR EXAM: Severe left ICA disease and possible occluded left MCA EXAM ORDER DATE: 02/19/2019 4:43 PM Ordering Elijah: Jacky Myrick MD PROCEDURE: - CTA NECK COMPARISON: FINDINGS: Axial images of the neck were obtained with IV contrast. Dose reduction techniques were applied. Reconstructed 3-D angiogram of the cervical vessels as well as intraluminal vessel analysis were also provided for interpretation The vertebral arteries are within normal limits. Noncalcified plaques identified at the origin of the right internal carotid artery. Severe high-grade calcified plaque seen at the origin of the left ICA IMPRESSION: 1. 40-45% calcified plaque of the origin of the right ICA 2. 90% calcified plaque at the origin of the left ICA at 2204 Reported and signed by: Daniel Hughes M.D. CC: Ingrid Velez MD; Jacky Myrick MD Technologist:Yadira Lord RT(R); [facility] [place] CTDI: DLP: Trnscb Date/Time: 02/19/2019 (2203) [email or web address] Orig Print D/T: S: 02/19/2019 (2206) CTDI: DLP: PAGE 1 Signed Report - CT HEAD/BRAIN W/O [id number] 09:18:00 Name: LETY STRONG [facility] : 1960 Age/S: 58 / F [address] [facility] Unit #: [id number] Loc: [place] [address] Phys: Lissy Nieves MD Acct: [id number] Dis Date: Status: REG ER PHONE #: [phone] Exam Date: 02/19/2019902 FAX #: [phone] Reason: rue numbness/tingling EXAMS: CPT CODE: [id number] CT HEAD/BRAIN W/O CONT 58881 HISTORY: Right upper extremity numbness and tingling. COMPARISON: Head CT from June 09, 2018. CT brain without contrast: Automated exposure control. No acute intracranial bleeds or extra- axial collections are noted. No acute territorial vascular infarction is noted. 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 The sulci, gyri, ventricles and subarachnoid spaces and the basilar cisterns are normal for patient's age. No herniation or hydrocephalus or midline shift is noted. Mild periventricular ischemic gliosis is noted. Age-appropriate atrophy is noted as well. Portions of the visualized paranasal sinuses demonstrated polysinusitis with air-fluid levels within the maxillary sinuses. No obvious bony calvarial defect is noted. IMPRESSION: No acute intracranial bleeds or extra-axial collections. No acute territorial vascular infarction. No herniation or hydrocephalus or midline shift. Chronic white matter ischemic disease and atrophy . at 0918 Reported and signed by: Christiano Ge M.D. CC: Lissy Nieves MD Technologist:Ghazala Patel,RT(R),CT; Brianna CTDI: DLP: Trnscb Date/Time: 02/19/2019 (917) [email or web address] Orig Print D/T: S: 02/19/2019 (920) CTDI: DLP: PAGE 1 Signed Report BASIC METABOLIC [id number] 08:44:00* Test Item Value Reference Range Comments SODIUM (test code=NA) 141 mmol/L 136-145 POTASSIUM (test code=K) 3.7 mmol/L 3.5-5.1 CHLORIDE (test code=CL) 107.0 mmol/L 98-107 CARBON DIOXIDE (test code=CO2) 24.0 mmol/L 21-32 ANION GAP (test code=GAP) 13.7 10-20 GLUCOSE (test code=GLU) 103 mg/dL 74-106 BLOOD UREA NITROGEN (test code=BUN) 9 mg/dL 7-18 GLOMERULAR FILTRATION RATE (test code=GFR) > 60 mL/min >=60 Estimated GFR by using Modified MDRD formula.Chronic kidney disease is defined as either kidney damageor GFR <60 mL/min/1.73 m2 for >3 months. CREATININE (test code=CREAT) 0.70 mg/dL 0.55-1.02 Note change in reference range due to change in reagent. BUN/CREATININE RATIO (test code=BUN/CREA) 12.9 10-20 CALCIUM (test code=CA) 9.6 mg/dL 8.5-10.1 CREATINE KINASE (CK)2019-02-19 08:44:00* Test Item Value Reference Range Comments CREATINE KINASE (CK) (test code=CK) 83 IUnit/L 26-208 [id number] 08:44:00* Test Item Value Reference Range Comments MAGNESIUM (test code=MAG) 2.0 mg/dL 1.8-2.4 HCG SERUM [id number] 08:44:00* Test Item Value Reference Range Comments HCG SERUM QUAL (test code=HCGQL) NEGATIVE NEGATIVE This HCGQL test is NOT applicable for MALE patients.Check with nurse about probable order error.If Tumor Marker Test needed, nurse should order test "HCGTU"(Test #550.60373) [id number] 08:44:00* Test Item Value Reference Range Comments TROPONIN-I (test code=TROPI) <0.015 ng/mL 0-0.045 BASIC METABOLIC [id number] 08:34:00* Test Item Value Reference Range Comments SODIUM (test code=NA) 141 mmol/L 136-145 POTASSIUM (test code=K) 3.7 mmol/L 3.5-5.1 CHLORIDE (test code=CL) 107.0 mmol/L 98-107 CARBON DIOXIDE (test code=CO2) mmol/L 21-32 ANION GAP (test code=GAP) 10-20 GLUCOSE (test code=GLU) mg/dL 74-106 BLOOD UREA NITROGEN (test code=BUN) mg/dL 7-18 GLOMERULAR FILTRATION RATE (test code=GFR) mL/min >=60 CREATININE (test code=CREAT) mg/dL 0.55-1.02 BUN/CREATININE RATIO (test code=BUN/CREA) 10-20 CALCIUM (test code=CA) 9.6 mg/dL 8.5-10.1 CREATINE KINASE (CK)2019-02-19 08:34:00* Test Item Value Reference Range Comments CREATINE KINASE (CK) (test code=CK) IUnit/L 26-208 [id number] 08:34:00* Test Item Value Reference Range Comments MAGNESIUM (test code=MAG) mg/dL 1.8-2.4 HCG SERUM [id number] 08:34:00* Test Item Value Reference Range Comments HCG SERUM QUAL (test code=HCGQL) NEGATIVE NEGATIVE This HCGQL test is NOT applicable for MALE patients.Check with nurse about probable order error.If Tumor Marker Test needed, nurse should order test "HCGTU"(Test #550.65750) [id number] 08:34:00* Test Item Value Reference Range Comments TROPONIN-I (test code=TROPI) ng/mL 0-0.045 BASIC METABOLIC [id number] 08:29:00* Test Item Value Reference Range Comments SODIUM (test code=NA) 141 mmol/L 136-145 POTASSIUM (test code=K) 3.7 mmol/L 3.5-5.1 CHLORIDE (test code=CL) 107.0 mmol/L 98-107 CARBON DIOXIDE (test code=CO2) mmol/L 21-32 ANION GAP (test code=GAP) 10-20 GLUCOSE (test code=GLU) mg/dL 74-106 BLOOD UREA NITROGEN (test code=BUN) mg/dL 7-18 GLOMERULAR FILTRATION RATE (test code=GFR) mL/min >=60 CREATININE (test code=CREAT) mg/dL 0.55-1.02 BUN/CREATININE RATIO (test code=BUN/CREA) 10-20 CALCIUM (test code=CA) 9.6 mg/dL 8.5-10.1 CREATINE KINASE (CK)2019-02-19 08:29:00* Test Item Value Reference Range Comments CREATINE KINASE (CK) (test code=CK) IUnit/L 26-208 [id number] 08:29:00* Test Item Value Reference Range Comments MAGNESIUM (test code=MAG) mg/dL 1.8-2.4 HCG SERUM [id number] 08:29:00* Test Item Value Reference Range Comments HCG SERUM QUAL (test code=HCGQL) NEGATIVE [id number] 08:29:00* Test Item Value Reference Range Comments TROPONIN-I (test code=TROPI) ng/mL 0-0.045 - XR CHEST 1 [id number] 08:28:00 FAX: Lissy Caceres [phone] [place]: B St: REG Name: LETY FOSTER [facility] : [birth year] Age/S: 58/F Obie Husain Unit #: [id number] Loc: [place] [address] Phys: Lissy Nieves MD Acct: [id number] Dis Date: Status: REG ER PHONE #: [phone] Exam Date: 02/19/2019 08 FAX #: [phone] Reason: WEAKNESS EXAMS: CPT CODE: [id number] XR CHEST 1 V 91158 HISTORY: Weakness. C OMPARISON: May 29, 2018 and June 09, 2018. No acute infiltrates, effusion or congestion. Dependent changes. Bullous changes in the upper lo bes. Cardiac silhouette is normal IMPRESSION: No acute infiltrates, effusion or congestion. at 0828 Reported and signed by: Christiano Ge M.D. CC: Lissy Nieves MD Technologist: Rain ALEMAN(R); STUDENT TECHNOLOGIST Trnscrd Date/Time/By: 02/19/2019 (0828) : By: [email or web address] Orig Print D/T: S: 02/19/2019 (0832) PAGE 1 Signed Report PROTHROMBIN TIME 2019-02-19 08:22:00* Test Item Value Reference Range Comments PROTHROMBIN TIME PATIENT (test code=PTP) 11.9 seconds 9.0-14.0 INTERNATIONAL NORMAL RATIO (test code=INR) 1.0 0.8-1.2 The therapeutic range for oral anticoagulant therapy formost indications is an international normalized ratio (INR)of between 2.0 and 3.0. The recommended therapeutic INRrange for various clinical situations is listed below: Clinical Situation INR range Pulmonary e mbolism treatment (2.0-3.0)Venous thrombosis treatmentVenous thrombosis prophylaxis (high risk surgery)Prevention of systemic embolism from: Acute myocardial infarction Valvular heart disease Atrial fibrillation Mechanical prosthetic heart valves (2.5-3.5) IS PATIENT ON ANTICOAGULANTS? NTHROMBOPLASTIN TIME [id number] 08:22:00* Test Item Value Reference Range Comments THROMBOPLASTIN TIME PARTIAL (test code=PTT) 33.5 seconds 25.0-36.5 IS PATIENT ON ANTICOAGULANTS? NCBC W/O [id number] 08:06:00* Test Item Value Reference Range Comments WHITE BLOOD CELL (test code=WBC) 6.6 K/mm3 4.5-12.5 RED BLOOD CELL (test code=RBC) 5.24 mill/mm3 3.7-5.2 HEMOGLOBIN (test code=HGB) 14.6 gram/dL 11.5-15.5 HEMATOCRIT (test code=HCT) 47.9 % 36.0-46.0 MEAN CELL VOLUME (test code=MCV) 91.4 fL 80-98 MEAN CELL HGB (test code=MCH) 27.9 picogram 27.0-33.0 MEAN CELL HGB CONCETRATION (test code=MCHC) 30.5 gram/dL 33.0-36.0 RED CELL DISTRIBUTION WIDTH (test code=RDW) 13.3 % 11.6-16.2 PLATELET COUNT (test code=PLT) 256 K/mm3 150-450 MEAN PLATELET VOLUME (test code=MPV) 10.0 fL 6.7-11.0 - MRI BRAIN W/O [id number] 11:03:00 FAX: Ame Soriano MD [place]: St: DIS FAX: Isac Velazco MD [phone] Name: LETY STRONG [facility] [place] : 1960 Age/S: 57/F [address] [place] [address] Unit #: [id number] Loc: [facility] [place] [address] Phys: Ame Ramirez MD Acct: [id number] Dis Date: Status: DIS IN PHONE #: [phone] Exam Date: 06/10/2018 0940 FAX #: [phone] Reason: acute stroke EXAMS: CPT CODE: [id number] MRI BRAIN W/O CONT 99159 MRI OF THE BRAIN WITHOUT CONTRAST: HISTORY: Acute stroke. COMPARISON EXAMS: CT angiogram from 06/09/2018. Previous noncontrast head CT of 06/09/2018. TECHNIQUE: T1 and T2-weighted images were obtained of the brain in axial, sagittal and coronal planes. Axial diffusion and gradient sequences were performed. FINDINGS: The diffusion weighted imaging shows abnormally increased signal intensity at the level of the left temporal insular cortex and subinsular white matter, extending superiorly into the left basal ganglia primarily involving the putamen and external capsule. High signal crosses the left globus pallidus and extends superiorly into the body of the left caudate n ucleus. High signal extends posteriorly and superiorly into the left nishant etal lobe. Left parietal lobe involvement is cortical and subcortical, po sterior to the central sulcus. There has been relative sparing of the lef t frontal lobe. No evidence of acute brainstem or cerebellar ischemia. T he regions of high signal correlate with decreased signal on the ADC map c ompatible with acute ischemia. The gradient sequence shows n o evidence of acute or chronic intracranial hemorrhage. No evidence of ma ss effect or midline shift. T2-weighted images show asymmetrical f low voids in the cavernous carotid arteries with decreased flow void in th e left cavernous carotid compatible with diminished flow. Similar signal alteration is identified at the level of the left carotid canal. Irregula r flow void is identified in the M1 segment of the left middle cerebral artery. High T2 signal is developing in the regions of restricted dif fusion previously described. No extra-axial fluid collections iden tified. Normal flow-void is identified in the distal vertebral and basila r arteries. Cerebellum and brainstem have normal appearance. A few, scat tered, focal areas of high T2 signal are noted in the periventricular whit e matter, left greater than right. Paranasal sinuses show mu cus retention cyst formation in the inferior aspect of the right maxillary sinus. PAGE 1 Signed Report (CONTINUED) FAX: Ame Soriano MD [place]: St: DIS FAX: Isac Velazco MD [phone] Name: FLEX STRONG [facility] [place] : 1960 Age/S: 57 /F [address] [place] [address] Unit #: [id number] Loc: [place] [address] Phys: Ame Ramirez MD Acct: [id number] Dis Date: atus: DIS IN PHONE #: [phone] Exam Date : 06/10/2018 0940 FAX #: [phone] Reason: acut e stroke EXAMS: CPT CODE: [id number] MRI BRAIN W/O CONT 55327 <Continued> IMPRESSION: 1. Acute infarction involving portions of the left temporal and left parietal lobes as well as the left basal ganglia as described above. 2. Relative sparing of the left frontal lobe. 3. No evidence of intracranial hemorrhage. 4. Abnormal flow voids in the distal left internal carotid artery at the skull base, the cavernous carotid, and M1 segment of the left middle cerebral artery. This correlates with the CT angiogram findings. 5. No evidence of mass effect or midline shift. 6. Minimal chronic small vessel ischemic changes, left greater than right. 7. Right maxillary sinus mucus retention cyst formation. SL:01 at 1103 Reported and signed by: Stan Cannon M.D. CC: Ame Ramirez MD; Isac Fowler MD Technologist: Sparkle Camacho RT(MR)(CT) Trnohrd Date/Time/By: 06/10/2018 (1103) : By: [facility].VGE/[facility].VGE Orig Print D/T: S: 06/10/2018 (6850) PAGE 2 Signed Report - CT CEREBRAL PERF [id number] 16:07:00 Name: LETY STRONG : 1960 Age/S: 57 / F [address] [place] [address] Unit #: [id number] Loc: [place] [address] Phys: Zahra Salas DO Acct: [id number] Dis Date: Status: DIS IN PHONE #: [phone] Exam Date: 06/09/2018 1520 FAX #: [phone] Reason: aphasia/ rt sided weakness/ facial droop EXAMS: CPT CODE: [id number] CT CEREBRAL PERF ANAL 59080 CTA head with perfusion CTA neck with contrast 06/09/2018 HISTORY: Right-sided weakness. Facial droop, aphasia Comparison: CT head same day TECHNIQUE: Sequential trans-axial images are obtained from the skull base to the vertex with a multi-detector helical CT after intravenous contrast administration. Coronal and sagittal MIP reconstructions are obtained. Perfusion parametric maps were also generated. Region of interest were placed for arterial input function at the basilar artery and venous input function at the right transverse sinus. IV Contrast: 100 mL Isovue-300 CT Radiation Dose DLP 2405 mGy-cm. FINDINGS: CTA ASSINIBOINE AND [place] TRIBES [place] FERNANDES: The distal vertebral arteries and basilar artery have normal caliber. Bilateral posterior cerebral arteries are patent with normal caliber. There is diminished flow in the distal left internal carotid artery. There are moderate calcifications in the bilateral ICA cavernous segments with 30% narrowing bilaterally. There is occlusion of the left MCA M1 segment. There is reconstitution of the left MCA M2 segments. The right middle cerebral artery and right anterior cerebral artery have normal caliber. Anterior communicating artery is patent. The left A1 segment and left A2 segment have normal caliber. CONTRAST ENHANCED BRAIN IMAGES: The contrast-enhanced images of the brain demons trate no pathologic enhancement. CT PERFUSION: Mean transit time: There is elevated mean transit time throughout the left MCA distribution Cerebral blood flow: There is decreased cerebral bl ood flow in the left temporal lobe, left cerebral white matter, and left b marj ganglia. Cerebral blood volume: There is decreased re lative cerebral blood volume in the left cerebral white matter and left ba francine ganglia. PAGE 1 Signed Report (CONTINUED) Name: LETY STRONG [facility] Hilda Camejo : 1960 Age/S: 57 / F [address] [place] [address] Blvd Unit #: [id number] Loc: [place] [address] Phys : Zahra Salas DO Acct: [id number] Dis Date: Status: DIS IN PHONE #: [phone] Exam Date: 06/09/2018 1520 FAX #: [phone] Reason: aphasia/ rt sided weakness/ facial droop EXAMS: CPT CODE: [id number] CT CEREBRAL PERF ANAL 15920 <Continued> Reversibility of flow in the left temporal lobe is noted. CTA NECK: There is a 1.5 cm long severe calcified plaque involving the left carotid bulb and proximal left internal carotid artery with dimi nished flow throughout the cervical segment left ICA. There are moderate calcifications in the right carotid bulb with narrowing of 40%. The right common carotid artery and right internal carotid artery are otherwise unr emarkable. There are dense calcifications at the aortic arch with normal caliber brachiocephalic trunk and right subclavian artery. The left subcl alberto artery is not visualized due to contrast in the left subclavian vein . There is tortuosity of the bilateral vertebral arteries which are paten t. There are moderate emphysematous changes in the visualized lung apices. 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 Moderate degenerative disc disease is C6-7 is noted with moderate to severe bilateral neural fo raminal narrowing. No severe bony canal stenosis is noted. Thyroid gland , bilateral parotid glands, and bilateral submandibular glands have a norm al appearance. No lymphadenopathy is present. Right maxillary mucous ret ention cyst is noted. IMPRESSION: 1. Severe calcified p laque in left carotid bulb and proximal left ICA measure 1.5 cm in lengt h. There is either complete luminal obstruction or 99% stenosis. Rever sible ischemic defect and left temporal lobe with fixed defects in the l eft basal ganglia and left cerebral white matter. 3. Occlusion of left MCA M1 segment with reconstitution of the left MCA M2 segments. 4. Moderate right carotid bulb calcifications with narrowing of 40%. 5. Moderate emphysematous changes in the visualized lung apices. 6. Moderate to severe degenerative disc disease at C6-7. Mariaa rial findings were discussed with Dr. Paredes by Dr. Enamorado at 3:35 PM on 06/09/2018. SL: [id number] Electronicall y Signed by Elijah Enamorado on 06/09/2018 at 1607 Reported and signed by: Yosef everett M.D. PAGE 2 Signed Report (C ONTINUED) Name: LETY STRONG [facility] [place] : 1960 Age/S: 57 / F [address] [place] [address] Un it #: [id number] Loc: [place] [address] Phys: Zahra Salas DO Acct: [id number] Dis Date: Status: DIS IN PHONE #: [phone] Exam Date: 06/09/2018 1520 FAX #: [phone] Reason: aphasia/ rt sided weakness/ facial droop E XAMS: CPT CODE: [id number] CT CEREBRAL PERF ANAL 67749 <Continued> CC: Zahra Salas DO Technologist:Malathi Bravo RT(R)(CT) CTDI: DLP: Trnscb Date/Time: 06/09/2018 (1607) [email or web address] Orig Print D/T: S: 06/09/2018 (1610) CTDI: DLP: PAGE 3 Signed Report - CT ANGIO [id number] 16:07:00 [facility] 1960 Age/S: 57 / F [address] [place] [address] Unit #: [id number] Loc: [place] [address] Phys: Zahra Salas DO Acct: [id number] Dis Date: Status: DIS IN PHONE #: [phone] Exam Date: 06/09/2018 1520 FAX #: [phone] Reason: aphasia/ rt sided weakness/ facial droop EXAMS: CPT CODE: [id number] CT ANGIO NECK 06801 CTA head with perfusion CTA neck with contrast 06/09/2018 HISTORY: Right-sided weakness. Facial droop, aphasia Comparison: CT head same day TECHNIQUE: Sequential trans-axial images are obtained from the skull base to the vertex with a multi-detector helical CT after intravenous contrast administration. Coronal and sagittal MIP reconstructions are obtained. Perfusion parametric maps were also generated. Region of interest were placed for arterial input function at the basilar artery and venous input function at the right transverse sinus. IV Contrast: 100 mL Isovue-300 CT Radiation Dose DLP 2405 mGy-cm. FINDINGS: CTA ASSINIBOINE AND [place] TRIBES OF FERNANDES: The distal vertebral arteries and basilar artery have normal caliber. Bilateral posterior cerebral arteries are patent with normal caliber. There is diminished flow in the distal left internal carotid artery. There are moderate calcifications in the bilateral ICA cavernous segments with 30% narrowing bilaterally. There is occlusion of the left MCA M1 segment. There is reconstitution of the left MCA M2 segments. The right middle cerebral artery and right anterior cerebral artery have normal caliber. Anterior communicating artery is patent. The left A1 segment and left A2 segment have normal caliber. CONTRAST ENHANCED BRAIN IMAGES: The contrast-enhanced images of the brain demons trate no pathologic enhancement. CT PERFUSION: Mean transit time: There is elevated mean transit time throughout the left MCA distribution Cerebral blood flow: There is decreased cerebral bl ood flow in the left temporal lobe, left cerebral white matter, and left b marj ganglia. Cerebral blood volume: There is decreased re lative cerebral blood volume in the left cerebral white matter and left ba francine ganglia. PAGE 1 Signed Report (CONTINUED) Name: LETY STRONG [facility] : 1960 Age/S: 57 / F [address] [place] [address] Blvd Unit #: [id number] Loc: [place] [address] Phys : Zahra Salas Acct: [id number] Dis Date: Status: DIS IN PHONE #: [phone] Exam Date: 06/09/2018 1520 FAX #: [phone] Reason: aphasia/ rt sided weakness/ facial droop EXAMS: CPT CODE: [id number] CT ANGIO NECK 45543 <Continued> Reversibility of flow in the left temporal lobe is noted. CTA NECK: There is a 1.5 cm long severe calcified plaque involving the left carotid bulb and proximal left internal carotid artery with dimi nished flow throughout the cervical segment left ICA. There are moderate calcifications in the right carotid bulb with narrowing of 40%. The right common carotid artery and right internal carotid artery are otherwise unr emarkable. There are dense calcifications at the aortic arch with normal caliber brachiocephalic trunk and right subclavian artery. The left subcl alberto artery is not visualized due to contrast in the left subclavian vein . There is tortuosity of the bilateral vertebral arteries which are paten t. There are moderate emphysematous changes in the visualized lung apices. 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 Moderate degenerative disc disease is C6-7 is noted with moderate to severe bilateral neural fo raminal narrowing. No severe bony canal stenosis is noted. Thyroid gland , bilateral parotid glands, and bilateral submandibular glands have a norm al appearance. No lymphadenopathy is present. Right maxillary mucous ret ention cyst is noted. IMPRESSION: 1. Severe calcified p laque in left carotid bulb and proximal left ICA measure 1.5 cm in lengt h. There is either complete luminal obstruction or 99% stenosis. Rever sible ischemic defect and left temporal lobe with fixed defects in the l eft basal ganglia and left cerebral white matter. 3. Occlusion of left MCA M1 segment with reconstitution of the left MCA M2 segments. 4. Moderate right carotid bulb calcifications with narrowing of 40%. 5. Moderate emphysematous changes in the visualized lung apices. 6. Moderate to severe degenerative disc disease at C6-7. Mariaa rial findings were discussed with Dr. Paredes by Dr. Enamorado at 3:35 PM on 06/09/2018. SL: [id number] Electronicall y Signed by Elijah Enamorado on 06/09/2018 at 1607 Reported and signed by: Yosef everett M.D. PAGE 2 Signed Report (C ONTINUED) Name: LETY STRONG [facility] : 1960 Age/S: 57 / F [address] [place] [address] Un it #: [id number] Loc: [place] [address] Phys: Zahra Salas DO Acct: [id number] Dis Date: Status: DIS IN PHONE #: [phone] Exam Date: 06/09/2018 1520 FAX #: [phone] Reason: aphasia/ rt sided weakness/ facial droop E XAMS: CPT CODE: [id number] CT ANGIO NECK 42728 <Continued> CC: Zahra Salas DO Technologist:Malathi Bravo, RT(R)(CT) CTDI: DLP: Trnscb Date/Time: 06/09/2018 (6108) [email or web address] Orig Print D/T: S: 06/09/2018 (8177) CTDI: DLP: PAGE 3 Signed Report - XR CHEST 1 [id number] 15:49:00 FAX: Zahra Beebe DO [phone] [place]: St: DIS Name: LETY FOSTER [facility] : [birth year] Age/S: 57/F [address] [place] [address] Unit #: [id number] Loc: [place] [address] Phys: Zahra Salas DO Acct: [id number] Dis Date: Status: DIS IN PHONE #: [phone] Exam Date: 06/09/2018 1545 FAX #: [phone] Reason: CODE NEURO - RIGHT SIDE WEAKNESS EXAMS: CPT CODE: [id number] XR CHEST 1 V 20089 CHEST, ONE VIEW: H ISTORY: Acute right-sided weakness. COMPARISON EXAM(S): [facility]. FINDINGS: This single portable view was ob tained at 1530 hours on 06/01/2018 and shows the cardiac silhouette to be n ormal. No acute consolidations or effusions. Interstitial pattern is mil dly prominent, but stable. No evidence of pneumothorax. The skeletal structures are unremarkable. IMPRESSION: 1. No acute changes. 2. Stable appearance of the chest compared to 05/29/2018. 3. Mildly prominent interstitial pattern. 4. Coarse calcifications projected near the right humeral head suggestive of ca lcific tendinitis. SL: 01 at 8338 Reported and signed by: Stan Cannon M.D. CC: Zahra Salas DO Technologist: Traci Smyth, RT(R) Trnscrd Date/Time/By: 06/09/2018 (6948) : By: Savi MillanAJJ Orig Print D/T: S: 06/09/2018 (2972) PAG E 1 Signed Report - CT HEAD/BRAIN W/O [id number] 15:22:00 Name: LETY STRONG [facility] [place] : 1960 Age/S: 57 / F [address] [place] [address] Blvd Unit #: [id number] Loc: [place] [address] Phys: Zahra Salas Acct: [id number] Dis Date: Status: DIS IN PHONE #: [phone] Exam Date: 06/09/2018 1519 FAX #: [phone] Reason: CODE NEURO - RIGHT SIDE WEAKNESS EXAMS: CPT CODE: [id number] CT HEAD/BRAIN W/O CONT 93643 CT BRAIN WITHOUT CONTRAST: HISTORY: Code neuro. Acute right-sided weakness. COMPARISON EXAM(S): None available TECHNIQUE: Axial images were obtained of the brain without contrast material. Sagittal and coronal reconstructions were generated. DOSE: CT imaging performed at this location utilizes radiation dose optimization technique which includes one or more of the followin) Automated exposure control; 2) Adjustment of the mA and/or kV according to patient's size; 3) Use of iterative reconstruction techniques. DLP (mGy-cm): 420 FINDINGS: An abnormally hyperdense left middle cerebral artery is identified compatible with thrombosis. The left anterior cerebral artery and right middle cerebral artery abnormal density. No evidence of acute intracranial hemorrhage, mass effect or midline shift. No extra-axial fluid collections identified. No early signs of infarction at this time. Atherosclerotic calcifications are seen throughout the cavernous carotids. The visualized paranasal sinuses are unremarkable. Mastoid air cells are unremarkable. IMPRESSION: 1. Hyperdense left middle cerebral artery compatible with thrombosis. 2. Intracranial atherosclerosis. 3. Otherwise unremarkable CT scan of the brain. Dr. Salas was notified of the findings by Dr. Cannon at 3:20 PM on 06/01/2018. FOR INTERNAL CODING PURPOSES ONLY RESULT CODE: CVR SL:01 PAGE 1 Signed Report (CONTINUED) Name: LETY STRONG [place] : 1960 Age/S: 57 / F [address] [place] [address] Blvd Unit #: [id number] Loc: [place] [address] Phys: Zahra Salas DO Acct: [id number] Dis Date: Status: DIS IN PHONE #: [phone] Exam Date: 06/09/2018 1519 F AX #: [phone] Reason: CODE NEURO - RIGHT SIDE WEAKNESS EXAMS: CPT CODE: [id number] CT HEAD/BRAIN W/O CONT 54907 <Continued> at 1522 Reported and signed by: Stan Cannon M.D. CC: Zahra Salas DO Technologist:Malathi Bravo, (R)(CT) CTDI: DLP: Trnscb Date/Time: 06/09/2018 (1522) [email or web address] Orig Print D/T: S: 06/09/2018 (1525) CTDI: DLP: PAGE 2 Signed Report - XR CONT ENEMA W/WO [id number] 12:48:00 FAX: Brionna Segura DO [place]: B St: DIS Name: LETY FOSTER [facility] : [birth year] Age/S: 57/F Obie Husain Unit #: [id number] Loc: [place] [address] Phys: Yusuf Hoffman MD Acct: [id number] Dis Date: Status: DIS IN PHONE #: [phone] Exam Date: 05/29/2018 1132 FAX #: [phone] Reason: COLOVESICAL FISTULA EXAMS: CPT CODE: [id number] XR CONT ENEMA W/WO KUB 48452 HISTORY: Colovesicular fistula. COMPARISON: CT scan from previous day. Medical Officer view of the abdomen demonstrating constipation. No contrast is noted. Phleboliths in the left hemipelvis. Following retrograde contrast administration free passage through the colon with diverticulosis of the sigmoid colon and suspected mild diverticulitis. No fistulous connection with the uri nary bladder is noted. Scattered diverticulosis of the transverse colon. Reflux into the small bowel at the terminal ileum. There is minim al opacification of the small bowel at the level of the sigmoid colon prior to reflux and the ileocecal valve in the left lower quadrant and t he etiology is not clear. I would recommend follow-up with CT scan as thi s could represent contrast within redundant sigmoid colon. IMPRE SSION: No evidence for colovesicular fistula. Diverticulitis of the sigmoid colon with scattered diverticulosis. Minimal opacification of the small bowel in the left lower quadrant prior to passage via the ileocecal valve of unclear etiology. This may represent contrast within the redundant sigmoid colon. I would follow- up with CT scan. Fluoroscopy time utilized was 2.6 minutes and 22 images were obtained. at 7895 Reported and signed by: Christiano rodarte M.D. CC: Brionna Alan DO Technologist: Echo venegas; STUDENT TECHNOLOGIST Trnscivelisse Cohen te/Time/By: 05/29/2018 (9251) : By: [email or web address] Orig Print D/T: S: 05/29 (8881) PAGE 1 Signed Report - XR CHEST 1 [id number] 08:44:00 FAX: Brionna Segura DO [place]: B St: DIS FAX: CM PRIETO MD Name: LETY STRONG [facility] : 1960 Age/S: 57/F Obie Husain Unit #: [id number] Loc: [place] [address] Phys: CM PRIETO MD Acct: [id number] Dis Date: Status: DIS IN PHONE #: [phone] Exam Date: 05/29/2018 0755 FAX #: [phone] Reason: CHEST PAIN EXAMS: CPT CODE: [id number] XR CHEST 1 V 13192 HISTORY: Chest pain. COMPARISON: Previous day No acute infiltrates, effusion or congestion is noted. The cardiac and mediastinal silhouette are within normal limits. IMPRESSION: No acute infiltrates, effusion or congestion. at 0844 Reported and signed by: Christiano Ge M.D. CC: Brionna Alan DO; CM PRIETO MD Technologist: RT KATHERINE(Yeny) Trnscrd Date/Time/By: 05/29/2018 (0844) : By: [email or web address] Orig Print D/T: S: 05/29/2018 (0845) PAGE 1 Signed Report - CT ABD PELVIS [id number] 08:55:00 Name: LETY STRONG [facility] : 1960 Age/S: 57 / F Obie Husain Unit #: [id number] Loc: [place] [address] Phys: JAISON PRIETO MD Acct: [id number] Di s Date: Status: DIS IN PHONE #: Exam Date: 05/28/2018 0840 FAX #: [phone] Reason: LLQ abdominal pain EXAMS: CPT CODE: [id number] CT ABD PELVIS W/CONT 15647 HISTORY: Left lower quadr ant abdominal pain. COMPARISON: None available. CT a bdomen and pelvis with IV contrast: 100 mL of Isovue-370. Automated expos ure control. CT abdomen: The lung bases are clear. The liver is enhancing homogeneously. Mild fatty infiltration. Gallbladder is without radiopaque stones. Unremarkable spleen. The stomach distended incompletely however it is within normal limits. Pancreas enhances homogeneously. Unremarkable adrenals. Kidneys are free from hydroureteronephrosis. Homogeneous enhancement. Bilateral excretion. No pathologic adenopathy. Very heavy ather osclerotic calcification of the abdominal and pelvic vasculature especiall y of the distal aorta which is nearly completely occluded just distal to i ts bifurcation with reconstitution. Severe narrowing at the left renal ar marlin level. No bowel obstruction or colitis or diverticulitis or e nteritis. Constipation. CT PELVIS: Appendix i s normal. Pelvic bowel loops are unobstructed. Thickening of the left co lonic wall with diverticulosis suggesting mild diverticulitis. No free fl uid or free air or abscess. Well-distended urinary bladder with sm all amount of air. Correlate if patient has been instrumented. Uterus ap pears very atrophied and small and barely visible. Phleboliths. No pelvi c pathologic adenopathy. Subcutaneous tissues and the muscul ature are normal in appearance. No lytic or blastic lesions are noted wit hin the bony skeleton. DJD. IMPRESSION: PAGE 1 Signed Report (CONTINUED) Name: LETY STRONG [facility] : 1960 Age/S: 57 / F [address] [facility] Unit #: [id number] Loc: [place] [address] Phys: CM PRIETO MD Acct: [id number] Dis Date: atus: DIS IN PHONE #: [phone] Exam Almas e: 05/28/2018 0840 FAX #: [phone] Reason: LLQ abd ominal pain EXAMS: CPT CODE: [id number] CT ABD PELVIS W/CONT 36047 <Continued> Mild left sigmoid diverticulitis. No free fluid, free air or abscess. Normal appendix. Constipation. Well-distended urinary bladder with small amount of air. Correlate if patient has been instrumented. Severely atherosclerotic aorta with near complete occlusion proximal to its bifurcation with distal reconstitution into the heavily atherosclerotic common iliac arteries. Severe atherosclerotic narrowing of the left renal artery as well. at 0855 Reported and signed by: Christiano Ge M.D. CC: CM PRIETO MD Technologist:PAYAL BARBOUR RT(R); Ghazala Avila CTDI: DLP: Trnscb Date/Time: 05/28/2018 (0855) Chucky Orig Print D/T: S: 05/28/2018 (0858) CTDI: DLP: PAGE 2 Signed Report - XR CHEST 1 [id number] 08:15:00 FAX: CM PRIETO MD [place]: St: DIS Name: LETY FOSTER [facility] : [birth year] Age/S: 57/F [address] [facility] Unit #: [id number] Loc: [facility] [place] [address] Phys: CM PRIETO MD Acct: [id number] Dis Date: Status: DIS IN PHONE #: [phone] Exam Date: 05/28/2018724 FAX #: [phone] Reason: COUGH EXAMS: CPT CODE: [id number] XR CHEST 1 V 78062 HISTORY: Cough. COMP ARISON: October 20, 2016. No acute infiltrates, effusion or conges tion is noted. Hyperinflation and COPD with upper lobe predominance. The cardiac and mediastinal silhouette are within normal limits. IMPRESSION: No acute infiltrates, effusion or con gestion. COPD with upper lobe predominance. at 0815 Report ed and signed by: Christiano Ge M.D. CC: CM PREITO Technologist: GAYLE LOVE RT(R) Trnscrd Date/Time/By: 05/28/2018 (0815) : By: michelle CHAMBERS Orig Print D/T: S: 05/28/2018 (0818) P AGE 3 Signed Report CREATINE KINASE (CK), TOTAL AND [id number] 00:00:00* Test Item Value Reference Range Comments CREATINE KINASE TOTAL (BEAKER) (test msco=800) 56 U/L 29-200 CREATINE KINASE-MB (BEAKER) (test nbgg=715) 1.0 ng/mL 0.0-6.6 CREATINE KINASE-MB INDEX (BEAKER) (test bnvh=059) 1.8 % Effective 09/30/2014: CK-MB Reference Range ChangeNew: 0.0-6.6 Previous: 0.0- 4.9CK-MB Reference Range:<6.7 Normal6.7-10.0 Borderline>10.0 Abnormal TROPONIN [id number] 00:00:00* Test Item Value Reference Range Comments TROPONIN I (BEAKER) (test ncyl=906) < ng/mL 0.00-0.03 Effective 09/30/2014: Reference Range ChangeNew: 0.00-0.03 Previous 0.00-0.15T roponin I (TnI) levels must be interpreted in the context of the presenting symp toms and the clinical findings. Elevated TnI levels indicate myocardial damage, but are not specific for ischemic heart disease. Elevated TnI levels are seen in patients with other cardiac conditions (including myocarditis and congestive he art failure), and slight TnI elevations occur in patients with other conditions, including sepsis, renal failure, acidosis, acute neurological disease, and pers istent tachyarrhythmia.BASIC METABOLIC [id number] 23:55:00* Test Item Value Reference Range Comments SODIUM (BEAKER) (test giuk=863) 141 meq/L 136-145 POTASSIUM (BEAKER) (test ilcv=477) 4.1 meq/L 3.5-5.1 CHLORIDE (BEAKER) (test dslw=094) 106 meq/L 98-107 CO2 (BEAKER) (test wiud=581) 25 meq/L 22-29 BLOOD UREA NITROGEN (BEAKER) (test czhy=939) 10 mg/dL 7-21 CREATININE (BEAKER) (test rvlq=194) 0.78 mg/dL 0.57-1.25 GLUCOSE RANDOM (BEAKER) (test onok=143) 98 mg/dL 70-105 CALCIUM (BEAKER) (test bbrb=553) 9.5 mg/dL 8.4-10.2 EGFR (BEAKER) (test zvgw=0732) mL/min/1.73 sq m INSUFFICIENT CLINICAL DATA TO CALCULATE ESTIMATED GFR. [id number] 23:54:00* Test Item Value Reference Range Comments MAGNESIUM (BEAKER) (test oyky=544) 2.4 mg/dL 1.6-2.6 PT/[id number] 23:48:00* Test Item Value Reference Range Comments PROTIME (BEAKER) (test pduh=629) 12.9 seconds 11.7-14.7 INR (BEAKER) (test trav=776) 1.0 <=5.9 PARTIAL THROMBOPLASTIN TIME (BEAKER) (test fqjn=431) 32.1 seconds 22.5-36.0 RECOMMENDED COUMADIN/WARFARIN INR THERAPY RANGESSTANDARD DOSE: 2.0 - 3.0 Inclu lillian: PROPHYLAXIS for venous thrombosis, systemic embolization; TREATMENT for daryl ous thrombosis and/or pulmonary embolus.HIGH RISK: Target INR is 2.5-3.5 for pat ients with mechanical heart valves.CBC W/PLT COUNT & AUTO [id number] 23:40:00* Test Item Value Reference Range Comments WHITE BLOOD CELL COUNT (BEAKER) (test sjfx=139) 10.2 K/ L 4.0-10.0 RED BLOOD CELL COUNT (BEAKER) (test hcrh=691) 5.06 M/ L 4.00-5.00 HEMOGLOBIN (BEAKER) (test qnzq=143) 15.0 GM/DL 12.0-15.0 HEMATOCRIT (BEAKER) (test bqxh=691) 45.5 % 36.0-45.0 MEAN CORPUSCULAR VOLUME (BEAKER) (test cpbq=551) 89.9 fL 82.0-99.0 MEAN CORPUSCULAR HEMOGLOBIN (BEAKER) (test ukfz=034) 29.6 pg 27.0-33.0 MEAN CORPUSCULAR HEMOGLOBIN CONC (BEAKER) (test iabj=195) 32.9 GM/DL 32.0-36.0 RED CELL DISTRIBUTION WIDTH (BEAKER) (test arpt=249) 12.5 % 10.3-14.2 PLATELET COUNT (BEAKER) (test jaod=846) 273 K/CU MM 150-430 MEAN PLATELET VOLUME (BEAKER) (test ytbc=948) 7.0 fL 6.5-10.5 NUCLEATED RED BLOOD CELLS (BEAKER) (test nhce=283) 0 /100 WBC 0-0 NEUTROPHILS RELATIVE PERCENT (BEAKER) (test zmwp=506) 61 % LYMPHOCYTES RELATIVE PERCENT (BEAKER) (test nvvz=396) 28 % MONOCYTES RELATIVE PERCENT (BEAKER) (test kfti=046) 9 % EOSINOPHILS RELATIVE PERCENT (BEAKER) (test cjpg=750) 2 % BASOPHILS RELATIVE PERCENT (BEAKER) (test jfsv=691) 0 % NEUTROPHILS ABSOLUTE COUNT (BEAKER) (test szrb=377) 6.25 K/ L 1.80-8.00 LYMPHOCYTES ABSOLUTE COUNT (BEAKER) (test jdct=215) 2.85 K/ L 1.48-4.50 MONOCYTES ABSOLUTE COUNT (BEAKER) (test wvjh=773) 0.89 K/ L 0.00-1.30 EOSINOPHILS ABSOLUTE COUNT (BEAKER) (test rvtv=217) 0.21 K/ L 0.00-0.50 BASOPHILS ABSOLUTE COUNT (BEAKER) (test oypd=824) 0.04 K/ L 0.00-0.20 0.00- XR CHEST 2 [id number] 14:47:00 Name: LETY STRONG [facility] : 1960 Age/S:56 /F [address] [facility] Unit#:[id number] Loc: [place] [address] Phys: Danay Nguyen MD Dis Date: PHONE #: [phone] Status: [facility] FAX #: [phone] Exam Date: 10/20/2016 Reason: cough EXAMS: CPT CODE: [id number] XR CHEST 2 V 88986 HISTORY: Cough. COMPARISON: None available. AP and lateral view of the chest: Lung scarring. No acute infiltrates, effusion or congestion. Cardiac and mediastinal silhouette are normal. IMPRESSION: No acute infiltrates, effusion or congestion. at 1072 Reported and signed by: Christiano Ge M.D. CC: Danay Nguyen MD; Orquidea Kiser NP Technologist: Carter Salazar [facility] Data: 10/20/2016 (6042) [email or web address] Orig Print D/T: S: 10/20/2016 (7608) PAGE 1 Signed Report
[2019-04-23] MEDS ORDERED: OXYMETAZOLINE HCL 0.05% NAS 1 SPRAY BTL ONE (23:15)
== END 2019-04-23 23:51 | disposition home or self-care (01) ==
LOC: ER 23:02
DX: R04.0 Epistaxis (principal); I10 Essential (primary) hypertension
CPT/HCPCS: 99281

== ENCOUNTER 2021-04-22 14:42 | Emergency (ER) | payer BC ==
[~2021-04-22] VITALS: Ht 167.6 cm; Wt 65.1 kg
[2021-04-22] MEDS ORDERED: PLAVIX75 MG PO (15:03)
[2021-04-22] MEDS ORDERED: CEFDINIR300 MG PO (16:27)
[2021-04-22] MEDS ORDERED: ULTRAM 50MG50 MG PO (16:30)
[2021-04-22 16:51] VITALS: BP 160/83
== END 2021-04-22 16:50 | disposition home or self-care (01) ==
LOC: FSED 14:59
DX: R05 Cough (principal); J02.9 Acute pharyngitis, unspecified; R59.9 Enlarged lymph nodes, unspecified; H69.93 Unspecified Eustachian tube disorder, bilateral; I10 Essential (primary) hypertension; E78.5 Hyperlipidemia, unspecified; I73.9 Peripheral vascular disease, unspecified
CPT/HCPCS: 81003; 83518; 99283

== ENCOUNTER → 2021-05-26 | Outpatient (CLI) | payer BC ==
[~2021-05-26] MED LIST: CEFDINIR300 MG PO; PLAVIX75 MG PO; ULTRAM 50MG50 MG PO
== END ==
LOC: MAMMO 11:44
PROVIDERS: ATTEND Internal Medicine
DX: Z12.31 Encounter for screening mammogram for malignant neoplasm of breast (principal)
CPT/HCPCS: 77067

== ENCOUNTER 2021-12-13 15:32 | Emergency (ER) | payer SELFPAY ==
[~2021-12-13] VITALS: Ht 162.6 cm; Wt 63.5 kg
[2021-12-13 16:29] LABS: BASOPHILS # (AUTO) 0.1 (0.0-0.1); BASOPHILS % 0.4 % (0.0-1.0); EOSINOPHILS % 0.3 % (0.0-6.0); HEMATOCRIT 48.7 % (34.2-44.1); HEMOGLOBIN 15.6 g/dL (12.0-16.0); LYMPHOCYTES # (AUTO) 2.5 (1.0-3.2); LYMPHOCYTES % 20.8 % (18.0-39.1); MEAN CORPUSCULAR HEMOGLOBIN 29.5 pg (28-32); MEAN CORPUSCULAR VOLUME 92.1 fL (81-99); MONOCYTES % 8.7 % (4.4-11.3); NEUTROPHILS # (AUTO) 8.2 (2.1-6.9); PLATELET COUNT 325 x10e3/uL (140-360); RED BLOOD COUNT 5.29 x10e6/uL (3.6-5.1); RED CELL DISTRIBUTION WIDTH 12.9 % (11.7-14.4)
[2021-12-13] MEDS ORDERED: ALBUTEROL/IPRATROPIUM 3 ML NEB NEB ONE (16:30)
[2021-12-13] MEDS ORDERED: GUAIFENESIN/CODEINE 5 ML LIQD PO PRN (16:30)
[2021-12-13 16:46] LABS: ALBUMIN 4.1 g/dL (3.5-5.0); ALBUMIN/GLOBULIN RATIO 1.2 (0.8-2.0); ANION GAP 14.9 mmol/L (8-16); CALCIUM 9.7 mg/dL (8.4-10.2); CREATININE, SERUM 0.84 mg/dL (0.57-1.11); POTASSIUM 3.9 mmol/L (3.5-5.1)
[2021-12-13] MEDS ORDERED: METHYLPREDNISOLONE SOD SUCC 125 MG/2ML VIAL IV SCH (17:00)
[2021-12-13] MEDS ORDERED: PROAIR HFA INH8.5 GM PO (17:38)
[2021-12-13] MEDS ORDERED: AZITHROMYCIN250 MG PO (17:38)
[2021-12-13] MEDS ORDERED: PREDNISONE50 MG PO (17:38)
[2021-12-13 18:29] VITALS: BP 146/89
== END 2021-12-13 18:30 | disposition home or self-care (01) ==
LOC: ER 16:14
DX: R05.9 Cough, unspecified (principal); J44.1 Chronic obstructive pulmonary disease with (acute) exacerbation; I10 Essential (primary) hypertension; E78.5 Hyperlipidemia, unspecified; I25.10 Atherosclerotic heart disease of native coronary artery without angina pectoris; Z86.73 Personal history of transient ischemic attack (TIA), and cerebral infarction without residual deficits; Z20.822 Contact with and (suspected) exposure to COVID-19
CPT/HCPCS: 36415; 71045; 80053; 85025; 94640; 94799; 99284; J2930; U0002

== ENCOUNTER → 2023-02-01 | Outpatient (CLI) | payer OTHER ==
[~2023-02-01] MED LIST changes: +AZITHROMYCIN250 MG PO; +PREDNISONE50 MG PO; +PROAIR HFA INH8.5 GM PO
== END ==
LOC: RAD 16:07
PROVIDERS: ATTEND Internal Medicine
DX: M54.50 Low back pain, unspecified (principal)
CPT/HCPCS: 72110

== ENCOUNTER 2023-02-06 06:29 | Emergency (ER) | payer OTHER ==
[~2023-02-06] VITALS: Ht 162.6 cm; Wt 63.5 kg
[2023-02-06] MEDS ORDERED: SODIUM CHLORIDE 0.9% 1000ML 1,000 ML IV STA (06:33)
[2023-02-06] MEDS ORDERED: ONDANSETRON HCL INJ 2MG/ML 2ML 2 MG/ML VIAL IV PRN (06:45)
[2023-02-06 07:04] LABS: BASOPHILS % 0.5 % (0.0-1.0); EOSINOPHILS # (AUTO) 0.1 (0.0-0.4); EOSINOPHILS % 1.4 % (0.0-6.0); HEMATOCRIT 42.7 % (34.2-44.1); LYMPHOCYTES # (AUTO) 1.9 (1.0-3.2); LYMPHOCYTES % 22.9 % (18.0-39.1); MEAN CORPUSCULAR HEMOGLOBIN 26.7 pg (28-32); MEAN CORPUSCULAR HGB CONC 30.4 g/dL (31-35); MEAN CORPUSCULAR VOLUME 87.7 fL (81-99); MONOCYTES # (AUTO) 0.6 (0.2-0.8); MONOCYTES % 7.9 % (4.4-11.3); NEUTROPHILS # (AUTO) 5.4 (2.1-6.9); NEUTROPHILS % 67.1 % (38.7-80.0); PLATELET COUNT 230 x10e3/uL (140-360); RED BLOOD COUNT 4.87 x10e6/uL (3.6-5.1); RED CELL DISTRIBUTION WIDTH 14.4 % (11.7-14.4)
[2023-02-06 07:26] LABS: ALBUMIN 3.5 g/dL (3.5-5.0); ALBUMIN/GLOBULIN RATIO 1.2 (0.8-2.0); ANION GAP 13.3 mmol/L (8-16); CREATININE, SERUM 0.76 mg/dL (0.57-1.11); POTASSIUM 4.3 mmol/L (3.5-5.1)
[2023-02-06] MEDS ORDERED: IOPAMIDOL 370 MG/ML 100 ML INFUS..BTL INJ ONE (07:48)
[2023-02-06] MEDS ORDERED: ULTRAM 50MG50 MG PO (09:00)
== END 2023-02-06 10:14 | disposition home or self-care (01) ==
LOC: ER 06:33
DX: K43.9 Ventral hernia without obstruction or gangrene (principal); I10 Essential (primary) hypertension; I25.10 Atherosclerotic heart disease of native coronary artery without angina pectoris; Z79.02 Long term (current) use of antithrombotics/antiplatelets; Z79.899 Other long term (current) drug therapy; Z86.73 Personal history of transient ischemic attack (TIA), and cerebral infarction without residual deficits; Z86.16 Personal history of COVID-19
CPT/HCPCS: 36415; 74177; 80053; 83690; 84702; 85025; 99284; J2405; J7030; Q9967

== ENCOUNTER → 2023-05-09 | Outpatient (CLI) | payer OTHER | LOC: MAMMO 10:06 | PROVIDERS: ATTEND Internal Medicine | DX: Z12.31 Encounter for screening mammogram for malignant neoplasm of breast (principal); M85.88 Other specified disorders of bone density and structure, other site; J44.9 Chronic obstructive pulmonary disease, unspecified | CPT/HCPCS: 71046; 77067; 77080 ==

== ENCOUNTER 2023-11-22 07:58 | Observation (INO) | payer SELFPAY ==
[~2023-11-22] VITALS: Ht 162.6 cm; Wt 55.8 kg
[~2023-11-22 07:58] MED LIST changes: +ASPIRIN EC81 MG PO; +ATORVASTATIN CA20 MG PO; +FERROUS SULFAT324 MG PO; +FOLIC ACID0.4 MG PO; +ISOSORBIDE MONO30 MG PO; +LISINOPRIL2.5 MG PO; +METOPROLOL SUCC50 MG PO; +NEURONTIN100 MG PO; +PENTOXIFYLLINE400 MG PO; +SERTRALINE HCL50 MG PO; +VARENICLINE1 EACH PO
[2023-11-22] MEDS ORDERED: Morphine 4mg INJECTION 4 MG/ML INJ IV STA (08:12)
[2023-11-22] MEDS ORDERED: SODIUM CHLORIDE 0.9% 1000ML 1,000 ML IV STA (08:12)
[2023-11-22] MEDS ORDERED: ONDANSETRON HCL INJ 2MG/ML 2ML 2 MG/ML VIAL IV STA (08:12)
[2023-11-22] MEDS ORDERED: LABETALOL HCL 5 MG/ML 20ML VIAL IV STA (08:17)
[2023-11-22 08:47] VITALS: BP 202/86
[2023-11-22 08:53] LABS: BASOPHILS % 0.7 % (0.0-1.0); EOSINOPHILS # (AUTO) 0.1 (0.0-0.4); EOSINOPHILS % 1.1 % (0.0-6.0); HEMATOCRIT 43.8 % (34.2-44.1); HEMOGLOBIN 12.6 g/dL (12.0-16.0); LYMPHOCYTES # (AUTO) 1.5 (1.0-3.2); LYMPHOCYTES % 25.1 % (18.0-39.1); MEAN CORPUSCULAR HEMOGLOBIN 21.7 pg (28-32); MEAN CORPUSCULAR HGB CONC 28.8 g/dL (31-35); MEAN CORPUSCULAR VOLUME 75.5 fL (81-99); MONOCYTES # (AUTO) 0.5 (0.2-0.8); MONOCYTES % 8.5 % (4.4-11.3); NEUTROPHILS % 64.3 % (38.7-80.0); PLATELET COUNT 322 x10e3/uL (140-360); WHITE BLOOD COUNT 6.14 x10e3/uL (4.8-10.8)
[2023-11-22 09:14] LABS: INR 0.99; PROTHROMBIN TIME 13.3 seconds (11.9-14.5)
[2023-11-22 09:15] LABS: PARTIAL THROMBOPLASTIN TIME 33.6 seconds (23.8-35.5)
[2023-11-22 09:24] LABS: ALBUMIN 4.2 g/dL (3.5-5.0); ALBUMIN/GLOBULIN RATIO 1.1 (0.8-2.0); ANION GAP 15.6 mmol/L (8-16); BILIRUBIN,TOTAL 0.5 mg/dL (0.2-1.2); CALCIUM 10.1 mg/dL (8.4-10.2); CREATININE, SERUM 0.85 mg/dL (0.57-1.11); MAGNESIUM 2.1 MG/DL (1.3-2.1); POTASSIUM 4.6 mmol/L (3.5-5.1); TOTAL PROTEIN 8.2 g/dL (6.5-8.1)
[2023-11-22 09:30] LABS: TROPONIN I 0.013 ng/mL (0-0.300)
[2023-11-22] MEDS ORDERED: IOPAMIDOL 370 MG/ML 100 ML INFUS..BTL INJ ONE (09:32)
[2023-11-22] MEDS ORDERED: HYDRALAZINE HCL 20 MG/ML VIAL IV STA (09:59)
[2023-11-22] MEDS ORDERED: KETOROLAC TROMETHAMINE 30 MG/ML VIAL IV STA (10:34)
[2023-11-22] MEDS ORDERED: ASPIRIN 325 MG TAB EC PO ONE (10:45)
[2023-11-22] MEDS ORDERED: Morphine 2mg Syringe 2 MG/ML SYR IV PRN (10:45)
[2023-11-22] MEDS ORDERED: HYDRALAZINE HCL 20 MG/ML VIAL IV PRN (10:45)
[2023-11-22] MEDS ORDERED: ONDANSETRON HCL INJ 2MG/ML 2ML 2 MG/ML VIAL IV PRN (10:45)
[2023-11-22 10:47] LABS: ANISOCYTOSIS MODERATE; HYPOCHROMASIA SLIGHT; MICROCYTOSIS MODERATE; PLATELET ESTIMATE ADEQUATE; PLATELET MORPHOLOGY COMMENT NORMAL; RBC MORPHOLOGY COMMENT ABNORMAL
[2023-11-22 11:22] VITALS: PULSE 74; RESP 22; O2SAT 98
[2023-11-22] MEDS ORDERED: ACETAMINOPHEN 325 MG TAB PO PRN (13:30)
[2023-11-22] MEDS ORDERED: POLYETHYLENE GLYCOL 3350 17 GM PACK PO PRN (13:30)
[2023-11-22] MEDS ORDERED: METOPROLOL TARTRATE 50 MG TAB PO SCH (17:00)
[2023-11-22] MEDS ORDERED: DOCUSATE SODIUM 100 MG CAP PO SCH (17:00)
[2023-11-22] MEDS ORDERED: FAMOTIDINE 20 MG/2 ML VIAL IV SCH (21:00)
[2023-11-23] MEDS ORDERED: NICOTINE 14 MG/EA PATCH TOP SCH (09:00)
[2023-11-23] MEDS ORDERED: ASPIRIN 81 MG ENTERIC COATED PO SCH (09:00)
== END 2023-11-22 14:30 | disposition left against medical advice (07) ==
LOC: ER 08:13 → ERHOLD 10:53
PROVIDERS: ADMIT Internal Medicine; ATTEND Internal Medicine
DX: R07.9 Chest pain, unspecified (principal); I10 Essential (primary) hypertension; I25.10 Atherosclerotic heart disease of native coronary artery without angina pectoris; E78.5 Hyperlipidemia, unspecified; Z86.73 Personal history of transient ischemic attack (TIA), and cerebral infarction without residual deficits; Z95.820 Peripheral vascular angioplasty status with implants and grafts; Z79.02 Long term (current) use of antithrombotics/antiplatelets; Z79.82 Long term (current) use of aspirin; Z79.899 Other long term (current) drug therapy; Z53.29 Procedure and treatment not carried out because of patient's decision for other reasons
CPT/HCPCS: 36415; 71260; 80053; 82550; 83690; 83735; 83880; 84484; 85025; 85610; 85730; 93005; 94799; 99284; C9113; G0378; J2270; J2405; J3490; J7030; Q9967

== ENCOUNTER 2024-10-22 13:06 | Emergency (ER) | payer SELFPAY ==
[~2024-10-22] VITALS: Ht 162.6 cm; Wt 55.8 kg
[2024-10-22 13:13] VITALS: TEMP 98.3
[2024-10-22 13:39] VITALS: PULSE 69; RESP 16; O2SAT 95
[2024-10-22] MEDS: TETANUS/DIPHTHERIA TOX ADULT 0.5 ML SYR IM ONE (14:20)
== END 2024-10-22 16:46 | disposition home or self-care (01) ==
LOC: ER 13:25
DX: S02.2XXA Fracture of nasal bones, initial encounter for closed fracture (principal); S00.81XA Abrasion of other part of head, initial encounter; W01.0XXA Fall on same level from slipping, tripping and stumbling without subsequent striking against object, initial encounter; Y92.89 Other specified places as the place of occurrence of the external cause; I10 Essential (primary) hypertension; E78.5 Hyperlipidemia, unspecified; I25.10 Atherosclerotic heart disease of native coronary artery without angina pectoris; Z86.73 Personal history of transient ischemic attack (TIA), and cerebral infarction without residual deficits; Z79.01 Long term (current) use of anticoagulants; F17.210 Nicotine dependence, cigarettes, uncomplicated
CPT/HCPCS: 70450; 70486; 72125; 90714; 99283

== ENCOUNTER 2024-12-05 15:18 | Emergency (ER) | payer SELFPAY ==
[~2024-12-05] VITALS: Ht 162.6 cm; Wt 57.2 kg
[2024-12-05 15:36] VITALS: TEMP 98.6
[2024-12-05 15:58] LABS: BASOPHILS # (AUTO) 0.1 (0.0-0.1); BASOPHILS % 0.9 % (0.0-1.0); EOSINOPHILS # (AUTO) 0.3 (0.0-0.4); EOSINOPHILS % 5.5 % (0.0-6.0); HEMATOCRIT 47.3 % (34.2-44.1); HEMOGLOBIN 14.5 g/dL (12.0-16.0); LYMPHOCYTES # (AUTO) 1.6 (1.0-3.2); LYMPHOCYTES % 28.4 % (18.0-39.1); MEAN CORPUSCULAR HEMOGLOBIN 30.2 pg (28-32); MEAN CORPUSCULAR HGB CONC 30.7 g/dL (31-35); MEAN CORPUSCULAR VOLUME 98.5 fL (81-99); MONOCYTES # (AUTO) 0.6 (0.2-0.8); MONOCYTES % 11.1 % (4.4-11.3); NEUTROPHILS % 53.9 % (38.7-80.0); PLATELET COUNT 238 x10e3/uL (140-360); WHITE BLOOD COUNT 5.59 x10e3/uL (4.8-10.8)
[2024-12-05 16:13] LABS: INR 0.97; PROTHROMBIN TIME 13.5 seconds (11.9-14.5)
[2024-12-05 16:14] LABS: PARTIAL THROMBOPLASTIN TIME 31.7 seconds (23.8-35.5)
[2024-12-05 16:22] LABS: ALBUMIN 3.7 g/dL (3.5-5.0); ALBUMIN/GLOBULIN RATIO 1.4 (0.8-2.0); ANION GAP 14.9 mmol/L (8-16); BILIRUBIN,TOTAL 0.6 mg/dL (0.2-1.2); CALCIUM 9.8 mg/dL (8.4-10.2); CREATININE, SERUM 0.83 mg/dL (0.57-1.11); MAGNESIUM 2.2 MG/DL (1.3-2.1); POTASSIUM 3.9 mmol/L (3.5-5.1); TOTAL PROTEIN 6.3 g/dL (6.5-8.1)
[2024-12-05 16:22] LABS: CORONAVIRUS COVID-19 AG NEGATIVE (NEGATIVE); INFLUENZA A AG NEGATIVE (NEGATIVE); INFLUENZA B AG NEGATIVE (NEGATIVE)
[2024-12-05 16:28] LABS: TROPONIN I 0.006 ng/mL (0-0.300)
[2024-12-05 16:59] VITALS: PULSE 55; RESP 16; O2SAT 95
[2024-12-05] MEDS: HYDRALAZINE HCL 20 MG/ML VIAL IV STA (17:50)
[2024-12-05] MEDS ORDERED: NORVASC5 MG PO (18:30)
== END 2024-12-05 18:47 | disposition home or self-care (01) ==
LOC: ER 15:53
DX: I10 Essential (primary) hypertension (principal); R51.9 Headache, unspecified; E78.5 Hyperlipidemia, unspecified; R53.1 Weakness; Z11.52 Encounter for screening for COVID-19; R94.31 Abnormal electrocardiogram [ECG] [EKG]; Z79.01 Long term (current) use of anticoagulants; Z86.73 Personal history of transient ischemic attack (TIA), and cerebral infarction without residual deficits
CPT/HCPCS: 36415; 70450; 71045; 80053; 82550; 83735; 84484; 85025; 85610; 85730; 87428; 99283; J0360; 93005